=== PATIENT | male | born 1930 | race African-American/Black ===

== ENCOUNTER 2016-03-15 15:08 | Inpatient (IN) | payer OTHER ==
[2016-03-15] MEDS ORDERED: ASPIRIN PO STA (15:13)
[2016-03-15] MEDS ORDERED: ASPIRIN PO ONE (15:13)
[2016-03-15 15:34] LABS: BE -5.3 mmoll (-3.0-3.0); BLOOD TYPE ARTERIAL; DRAW SITE L RADIAL; METHB 0.7 % (0.0-1.5); O2(CT) 14.8 mL/dL (15.0-23.0); PCO2(98.6) 47 mmHg (35-45); PO2(98.6) 108 mmHg (60-100); SAMPLE BLOOD; SAO2 99.1 % (95.0-100.0); THB 10.8 g/dL (11.5-17.4); pH(98.6) 7.27 (7.35-7.45)
[2016-03-15 15:37] LABS: MANUAL DIFF NEEDED? NO
[2016-03-15 15:38] LABS: BASO% 0.3 % (0.0-0.8); EOS# 0.04 X1000 (0.0-0.7); EOS% 0.6 % (0.0-10.0); HEMATOCRIT 37.2 % (42.0-52.0); HEMOGLOBIN 12.3 g/dL (14.0-18.0); IMM GRAN# 0.08 X1000 (0.0-0.04); IMM GRAN% 1.2 % (0.0-0.5); LYMPH# 2.18 X1000 (1.2-3.4); LYMPH% 33.6 % (20.5-51.1); MCH 28.9 PG (27-31); MCHC 33.1 g/dL (33-37); MCV 87.5 FL (81-99); MONO# 0.39 X1000 (0.11-0.59); MPV 11.7 FL (7.4-10.4); NEUT% 58.3 % (42.2-75.2); PLT 162 X1000 (130-400); RBC 4.25 XMIL (4.7-6.1)
[2016-03-15 15:39] LABS: ALLEN TEST YES; MODALITY AMBU BAG
--- NOTE | 2016-03-15 15:39 | PROVIDER DOCUMENTATION ---
HPI-Cardiopulmonary Arrest - General Chief Complaint: Full Arrest Stated Complaint: code Time Seen by Provider: 03/15/16 15:08 Source: EMS Allergies/Adverse Reactions: Allergies Allergy/AdvReac Type Severity Reaction Status Date / Time No Known Allergies Allergy Verified 03/15/16 15:13 Home Medications: Aspirin 325 mg PO 11/01/14 Metoprolol/Hydrochlorothiazide [Lopressor Hct 100-25 Tablet] 11/01/14 Omeprazole [Prilosec] 11/01/14 Terazosin HCl 10 mg PO DAILY 11/01/14 - History of Present Illness-C/P Arrest Initial Comments: Pt is 85 y/o M presents to the ED with post full arrest. EMS states son witnessed arrest and started chest compressions. EMS states son stated Pt has prior stroke. EMS states intubating in route to ED and inserting EJ on L side. 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 Pt went into full arrest again at 1529 and chest compression and epi given. Pt's pulse was found again at 1531 and compressions stopped. Reason for Code Blue?: full arrest Witnessed arrest?: Yes (son) Noted by:: family (son) Bystander CPR?: Yes (son ) CPR initiated before doctor arrival?: Yes Down-time before ACLS?: unknown Initial Findings: unresponsive Treatment initiated prior to doctor arrival?: Initiated intubated, Initiated CPR /thumper, Initiated epinephrine #mg (times 4), Initiated sodium bicarb # amps (1 ) Similar Symptoms Previously?: No Recently seen or treated by another doctor?: No - Pre-hospital Treatment EMS Initial Findings:: unresponsive Pre-hospital Treatment: Initiated intubated, Initiated CPR, Initiated epinephrine, Initiated other (bicarb) Review of Systems - Adult - REVIEW OF SYSTEMS - ADULT Constitutional: denies: chills, fever Eyes: denies: blurred vision, double vision Ears, Nose, Mouth & Throat: denies: ear pain, nose pain, throat pain Cardiovascular: reports: irregular heart rate (tachy). denies: chest pain, heart murmur Respiratory: denies: cough, shortness of breath, wheezing Gastrointestinal: denies: abdominal pain, diarrhea, nausea, vomiting Genitourinary: denies: dysuria, hematuria Musculoskeletal: denies: bone pain, joint pain, neck pain Integumentary: denies: hives, itching Neurological: denies: dizziness/vertigo, headache/migraines Psychiatric: reports: no symptoms reported Endocrine: reports: no symptoms reported Hematologic/Lymphatic: reports: no symptoms reported Allergic/Immunologic: reports: no symptoms reported All Other Systems: Reviewed and Negative Past History - Adult - PAST MEDICAL HISTORY-ADULT Review of Records: reports: Nursing Assessment Review, Medications Reviewed, Social history reviewed & non-contributory. Major Childhood Illnesses: reports: denies history Cardiovascular: reports: HTN, hyperlipidemia, RI Respiratory: reports: denies history Gastrointestinal: reports: GERD Obstetrical/Gynecological: reports: denies history Genitourinary: reports: denies history Musculoskeletal: reports: denies history Neurological: reports: denies history Endocrine/Immune: reports: denies history Other Conditions: reports: denies history - PRIOR SURGERIES/PROCEDURES Surgical/Procedure History: reports: CABG - IMMUNIZATION STATUS Childhood Immunizations: See Nurse Assessment Flu Vaccine: See Nurse Assessment - FAMILY HISTORY Family History: reviewed, not pertinent - SOCIAL HISTORY Smoking: denies Substance Use: denies Living Situation: family Physical Exam-General - PHYSICAL EXAM-ADULT Initial Vital Signs Reviewed: Yes - CONSTITUTIONAL General Appearance: mild distress. negative: appears well (ill in appearance) - EYES Eyes: PERRL/EOMI, pink conjunctivae - HEAD, EARS, NOSE, MOUTH & THROAT HENMT: normocephalic/atraumatic, moist mucous membranes, normal ENT inspection - NECK Neck: non-tender, full range of motion, normal inspection - RESPIRATORY Respiratory: chest non-tender, lungs clear, normal breath sounds (with intubation) - CARDIOVASCULAR Cardiovascular: normal peripheral pulses, no edema, tachycardia - GASTROINTESTINAL (ABDOMEN) Abdominal Exam: normal bowel sounds, non tender, soft, distended, other - LYMPHATIC Lymphatic: no adenopathy - MUSCULOSKELETAL Back Exam: normal inspection, no CVA tenderness, no vertebral tenderness - SKIN Integumentary: normal color, normal turgor, warm/dry, other (stage 4 skin ulcer to R mg) Progress - PLAN OF CARE/RESULTS Progress/Plan/Lab Results: Laboratory Tests 03/15/16 03/15/16 15:07 15:30 WBC 6.48 RBC 4.25 L Hgb 12.3 L Hct 37.2 L MCV 87.5 MCH 28.9 MCHC 33.1 RDW Std Deviation 18.8 H Plt Count 162 MPV 11.7 H Immature Gran % (Auto) 1.2 H Neut % (Auto) 58.3 Lymph % (Auto) 33.6 Dougherty % (Auto) 6.0 Eos % (Auto) 0.6 Baso % (Auto) 0.3 Immature Gran # (Auto) 0.08 H Neut # (Auto) 3.77 Lymph # (Auto) 2.18 Dougherty # (Auto) 0.39 Eos # (Auto) 0.04 Baso # (Auto) 0.02 Specimen Type ARTERIAL Sample Site L RADIAL pH 7.27 L pCO2 47 H pO2 108 H HCO3 20.8 Base Excess -5.3 L Oxyhemoglobin 96.0 ABG O2 Sat (Calculated) 14.8 L ABG O2 Saturation 99.1 ABG Carboxyhemoglobin 2.40 ABG Methemoglobin 0.7 Daniel Test YES A-a O2 Difference 546.0 Total Hemoglobin 10.8 L Lactate 6.30 H* Liter Flow 15.0 Blood Gas Modality AMBU BAG FiO2 % 100.0 Orders Category Date Time Status Cardiac Monitoring DIRECTED Care 03/15/16 15:13 Active Oxygen Therapy- ED Nursing DIRECTED Care 03/15/16 15:13 Active Saline Loc NOW Care 03/15/16 15:13 Active CHEST-PORTABLE [RAD] Stat Exams 03/15/16 15:14 Taken ABG [RESP] Routine Lab 03/15/16 15:07 Completed CBC WITH ELECTRONIC DIFF [HEME] Stat Lab 03/15/16 15:30 Completed CK PROFILE [SP CHEM] Stat Lab 03/15/16 15:30 Received COMPREHENSIVE METABOLIC PANEL [CHEM] Stat Lab 03/15/16 15:30 Received D-D[address]ER [address] [COAG] Stat Lab 03/15/16 15:30 Received MAGNESIUM [CHEM] Stat Lab 03/15/16 15:30 Received PRO B-NATRIURETIC PEPTIDE Stat Lab 03/15/16 15:30 Received [address]IME WITH INR PL [COAG] Stat Lab 03/15/16 15:[address] [COAG] Stat Lab 03/15/16 15:30 Received TROPONIN T Stat Lab 03/15/16 15:30 Received Aspirin Med 03/15/16 15:13 Discontinued 325 mg PO STAT STA Aspirin Med 03/15/16 15:13 Discontinued 81 mg PO NOW ONE EKG [EKG] Stat Ther 03/15/16 15:13 Ordered Vital Signs - 24 hr 03/15/16 03/15/16 03/15/16 15:08 15:22 15:32 Pulse Rate 121 H 92 H 144 H Respiratory 15 15 Rate Blood Pressure 122/084 104/067 173/115 O2 Sat by Pulse 63 L Oximetry Laboratory Tests 03/15/16 03/15/16 03/15/16 15:07 15:30 15:30 WBC RBC Hgb Hct MCV MCH MCHC RDW Std Deviation Plt Count MPV Immature Gran % (Auto) Neut % (Auto) Lymph % (Auto) Dougherty % (Auto) Eos % (Auto) Baso % (Auto) Immature Gran # (Auto) Neut # (Auto) Lymph # (Auto) Dougherty # (Auto) Eos # (Auto) Baso # (Auto) PT INR APTT (Factor Assay) Specimen Type ARTERIAL Sample Site L RADIAL pH 7.27 L pCO2 47 H pO2 108 H HCO3 20.8 Base Excess -5.3 L Oxyhemoglobin 96.0 ABG O2 Sat (Calculated) 14.8 L ABG O2 Saturation 99.1 ABG Carboxyhemoglobin 2.40 ABG Methemoglobin 0.7 Daniel Test YES A-a O2 Difference 546.0 Total Hemoglobin 10.8 L Lactate 6.30 H* Liter Flow 15.0 Blood Gas Modality AMBU BAG FiO2 % 100.0 Sodium 137 Potassium 4.1 Chloride 98 Carbon Dioxide 26 Anion Gap 13 BUN 23 H Creatinine 1.2 Estimated GFR/1.73 m2 58 BUN/Creatinine Ratio 19 Glucose 119 H Calculated Osmolality 279 Calcium 8.4 L Magnesium 2.1 Total Bilirubin 1.90 H AST 26 ALT 18 Alkaline Phosphatase 146 H Creatine Kinase 130 Troponin T 0.022 Total Protein 6.3 Albumin 3.1 L Globulin 3.0 Albumin/Globulin Ratio 1.0 03/15/16 03/15/16 15:30 15:30 WBC 6.48 RBC 4.25 L Hgb 12.3 L Hct 37.2 L MCV 87.5 MCH 28.9 MCHC 33.1 RDW Std Deviation 18.8 H Plt Count 162 MPV 11.7 H Immature Gran % (Auto) 1.2 H Neut % (Auto) 58.3 Lymph % (Auto) 33.6 Dougherty % (Auto) 6.0 Eos % (Auto) 0.6 Baso % (Auto) 0.3 Immature Gran # (Auto) 0.08 H Neut # (Auto) 3.77 Lymph # (Auto) 2.18 Dougherty # (Auto) 0.39 Eos # (Auto) 0.04 Baso # (Auto) 0.02 PT 20.9 H INR 1.78 H APTT (Factor Assay) 41.2 Specimen Type Sample Site pH pCO2 pO2 HCO3 Base Excess Oxyhemoglobin ABG O2 Sat (Calculated) ABG O2 Saturation ABG Carboxyhemoglobin ABG Methemoglobin Daniel Test A-a O2 Difference Total Hemoglobin Lactate Liter Flow Blood Gas Modality FiO2 % Sodium Potassium Chloride Carbon Dioxide Anion Gap BUN Creatinine Estimated GFR/1.73 m2 BUN/Creatinine Ratio Glucose Calculated Osmolality Calcium Magnesium Total Bilirubin AST ALT Alkaline Phosphatase Creatine Kinase Troponin T Total Protein Albumin Globulin Albumin/Globulin Ratio - EKG 1 Time of EKG reading by physician:: 15:12 EKG Read and Signed by:: Emmanuel Sutton EKG Interpretation (*Must complete 3 of following elements*): Abnormal (rhythm - aberrantly conducted complexes; ST and T wave abnormality, consider anterolateral ischemia; prolonged QT) Rate: 114 Rhythm: atrial fibrillation w rapid ventricular response w premature ventricular or Comments: L axis deviation; low voltage QRS; inferior infarct, age undetermined 2 Time of EKG reading by physician:: 15:13 EKG Read and Signed by:: Emmanuel Sutton EKG Interpretation (*Must complete 3 of following elements*): Abnormal (ST and T wave abnormality, consider anterolateral ischemia) Rate: 108 Rhythm: undetermined rhythm Comments: L axis deviation; low voltage QRS; inferior infarct, age undetermined - XRAY 1 XRAY: Bilateral XRAY Study: Chest Impression: Abnormal (endotracheal tube approaching the dave. this should be withdrawn 1 to 2 cm. layering R pleural effusion. bilateral upper lobe infiltrates. suspect skin fold producing a linear lucency L upper lung zone, less likely L pneumothorax. followup recommended.) - CONSULTS/PCP/HOSPITALIST Notification #1 *Consult/PCP/Hospitalist*: Dr. Crouch Time Discussed: 15:40 ( accepted admit ) Reason/Comments: Dr. Sutton consulted with Dr. Crouch about admit of PT Consult Disposition: Admit Departure - Departure Time of Disposition Order: 16:26 DIAGNOSIS: Cardiac arrest Disposition: ADMITTED INPATIENT 09 Certified Medical Emergency: Emergent Condition: Stable Attestation - Scribe Verification/Attestation Scribe:: Sharmaine Duran Acting as Scribe for:: Emmanuel Sutton Scribe documention review:: This chart was documented by a scribe and accurately reflects the service the provider performed and the decisions made by the provider.
[2016-03-15 15:57] LABS: INR 1.78 (0.86-1.15); PROTIME 20.9 Seconds (12.1-15.5)
[2016-03-15 15:58] LABS: PTT PL 41.2 Seconds (22.6-43.9)
[2016-03-15 15:59] LABS: ALBUMIN 3.1 g/dL (3.5-5.0); CALCIUM 8.4 mg/dL (8.8-10.2); MAGNESIUM 2.1 mg/dL (1.5-2.7); POTASSIUM 4.1 mmol/L (3.5-5.1); TOTAL BILIRUBIN 1.9 mg/dL (0.20-1.00); TOTAL PROTEIN 6.3 g/dL (6.3-8.3)
--- NOTE | 2016-03-15 16:49 | Diag Imaging Result Document ---
PROCEDURE NAME: CHEST-PORTABLE - 03/15/2016 CHEST, SINGLE VIEW: INDICATION: Post arrest. FINDINGS: There is an endotracheal tube in position. This is encroaching upon the dave and probably should be withdrawn 1 to 2 cm. There is cardiomegaly. There is a right pleural effusion. There are bilateral upper lobe infiltrates. Lucency left upper lung zone is thought to represent a skin fold as opposed to a small pneumothorax. Followup is recommended. There is a catheter within the left neck. IMPRESSION: 1. Endotracheal tube approaching the dave. This should be withdrawn 1 to 2 cm. 2. Layering right pleural effusion. 3. Bilateral upper lobe infiltrates. 4. Suspect skin fold producing a linear lucency left upper lung zone, less likely left pneumothorax. Followup recommended.
[2016-03-15] MEDS ORDERED: EPINEPHRINE SYRINGE ONE (17:45)
[2016-03-15] MEDS ORDERED: CALCIUM CHLORIDE ONE (17:45)
[2016-03-15] MEDS ORDERED: VERSED 100 MG in NS 80 ML IV PRN (18:45)
--- NOTE | 2016-03-15 19:30 | EKG Report ---
Test Performed on : 03/15/2016 3:12:30 PM Test Reason : CHEST PAIN Blood Pressure : / mmHG Vent. Rate : 114 BPM Atrial Rate : 075 BPM P-R Int : 000 ms QRS Dur : 094 ms QT Int : 406 ms P-R-T Axes : 000 -64 107 degrees QTc Int : 559 ms Atrial fibrillation. with rapid ventricular response. with premature ventricular or aberrantly conduc marvin complexes. Left axis deviation Low voltage QRS Inferior infarct , age undetermined ST & T wave abnormality, consider anterolateral ischemia Prolonged QT Abnormal ECG No previous ECGs available Unconfirmed Result
[2016-03-15] MEDS: NS 1,000 ML IV SCH (19:59)
[2016-03-16] MEDS: NEO-SYNEPHRINE 50 MG in NS 250 ML IV PRN ×2 (02:00→12:15)
[2016-03-16] MEDS: NS 1,000 ML IV SCH ×3 (05:43→23:00)
[2016-03-16] MEDS ORDERED: ZITHROMAX 500 MG/NS 250 ML IV SCH (06:30)
[2016-03-16] MEDS ORDERED: ROCEPHIN 1 GM/NS 50 ML IV SCH (06:30)
[2016-03-16] MEDS: DUONEB (A & A) INH SCH ×3 (08:14→21:00)
[2016-03-16 08:33] LABS: ALBUMIN 2.6 g/dL (3.5-5.0); CALCIUM 8.7 mg/dL (8.8-10.2); MAGNESIUM 1.9 mg/dL (1.5-2.7); POTASSIUM 4.1 mmol/L (3.5-5.1); TOTAL BILIRUBIN 2.3 mg/dL (0.20-1.00); TOTAL PROTEIN 5.7 g/dL (6.3-8.3)
[2016-03-16 08:45] LABS: BASO% 0.1 % (0.0-0.8); HEMATOCRIT 32.7 % (42.0-52.0); HEMOGLOBIN 10.8 g/dL (14.0-18.0); IMM GRAN# 0.02 X1000 (0.0-0.04); IMM GRAN% 0.2 % (0.0-0.5); LYMPH# 0.67 X1000 (1.2-3.4); LYMPH% 6.2 % (20.5-51.1); MANUAL DIFF NEEDED? YES; MCH 28.3 PG (27-31); MCV 85.8 FL (81-99); MONO# 0.72 X1000 (0.11-0.59); MONO% 6.7 % (1.7-9.3); MPV 11.9 FL (7.4-10.4); NEUT% 86.8 % (42.2-75.2); PLT 190 X1000 (130-400); RBC 3.81 XMIL (4.7-6.1)
--- NOTE | 2016-03-16 09:20 | Diag Imaging Result Document ---
PROCEDURE NAME: CHEST-PORTABLE - 03/16/2016 SINGLE FRONTAL RADIOGRAPH OF THE CHEST: COMPARISON: 03/15/2016. FINDINGS: ET tube is approximately stable or, perhaps, it has been withdrawn slightly. It projects a couple centimeters above the dave. Infiltrate on the left appears to have improved somewhat. The right infiltrate is approximately stable. The pleural effusion on the right appears smaller. No new consolidations are identified. Cardiac silhouette is stable. IMPRESSION: Improved infiltrate on the left and decrease in prominence of the right pleural effusion.
[2016-03-16 09:34] LABS: LYMPHS 6 % (21-51); MONO 3 % (1-9); NRBC 1 % (0-0)
[2016-03-16 09:35] LABS: HYPOCHROM OCCASIONAL
[2016-03-16 10:41] LABS: BLOOD TYPE ARTERIAL; DRAW SITE L BRACHIAL; METHB 0.9 % (0.0-1.5); O2(CT) 16.4 mL/dL (15.0-23.0); PCO2(98.6) 35 mmHg (35-45); PO2(98.6) 234 mmHg (60-100); SAMPLE BLOOD; SAO2 100.3 % (95.0-100.0); SRATE 14 BPM; THB 11.6 g/dL (11.5-17.4); TVOL 500 mL; pH(98.6) 7.47 (7.35-7.45)
[2016-03-16 10:45] LABS: ALLEN TEST YES; MODALITY VENTILATOR
--- NOTE | 2016-03-16 11:15 | CONSULTATION ---
DATE OF CONSULTATION: 03/15/2016 ATTENDING PHYSICIAN: Dr. Crouch. REASON FOR CONSULTATION: Unresponsiveness. Status post cardiac arrest. Please note that most of the history is obtained from the nurses, as well as the ER notes. HISTORY OF PRESENT ILLNESS: Mr. Montes De Oca is an 85-year-old male, who was brought in by the EMS to the hospital with cardiac arrest. He was intubated and was initiated CPR, as well as epinephrine by the EMS at his house. Patient has history of coronary artery disease and stroke. The rest of the history is unavailable. He was admitted to the ICU for ventilator and critical care management. PAST MEDICAL HISTORY: Per records. History of coronary artery disease status post CABG, hypertension, hyperlipidemia, CVA and GERD. PAST SURGICAL HISTORY: Unknown. SOCIAL HISTORY: Unknown. FAMILY HISTORY: Unknown. REVIEW OF SYSTEMS: No fevers, patient unresponsive. PHYSICAL EXAMINATION: Vitals: Blood pressure was 124/68, respiratory rate 20, pulse 75, temperature 97.0 degrees, oxygen saturation is 100% on 100% FiO2 on the vent with a tidal volume of 500, respiratory rate of 15 and PEEP of 5. General: On physical exam, patient is unresponsive, even for painful stimulus. Head and Neck: Normocephalic and atraumatic. Heart: S1, S2 heard. Lungs: Crackles noted bilaterally. No wheezing or rhonchi. Abdomen: Soft. Extremities: No edema. 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 Patient is unresponsive for painful stimulus without any sedation. LABS: White count 6.4, hemoglobin 12.3, hematocrit 37. Blood gases: The pH 7.27, pCO2 77, PO2 108, bicarbonate is 20. Chemistry: Sodium 137, potassium 4.1, chloride 98, CO2 26, BUN 23, creatinine 1.2. ProBNP more than 35,000. Troponin was 0.022. X-RAYS: Chest x-ray showed right-sided pleural effusion, bilateral upper lobe infiltrates, endotracheal tube approaching dave (recommended retracting 1 to 2 cm). ASSESSMENT: 1. Status post cardiac arrest. 2. Acute hypoxic and hypercapnic respiratory failure s/p Intubation 3. Possible aspiration pneumonia. Plan: Monitor hemodyanamics closely, Using pressors if MAP <65. He was on phenylephrine which has been weaned off. Repeat serial tropnins. Echo to assess cardiac function. B-blockers, asa, and statins. and lasix prn for possible fluid overload. Acute hypoxic hypercapnic respiratory failure secondary to cardiac arrest, He was intubated for respiratory failure secondary to cardiac arrest. Continue ventilatory support due to severe hypoxia and poor mental status. I will change ventilatory settings to tidal volume of 500, respiratory rate of 16, and decrease FiO2 to 90% and PEEP of 8. We will repeat ABG in the morning. Recommend bronchodilators, as well as antibiotics until further data and labs are available. Aspiration pneumonia, chest x-ray reveals bilateral effusions. We will cover him empirically with antibiotics, Rocephin and Zithromax. Prognosis appears to be poor. Condition is critical. Continue management in ICU while patient is intubated. [facility]
[2016-03-16] MEDS ORDERED: VANCOMYCIN IV PER PHARMACY MISC SCH (13:30)
[2016-03-16] MEDS: ZOSYN 3.375 GM/NS 50 ML IV SCH ×2 (14:00→20:08)
--- NOTE | 2016-03-16 14:17 | PROGRESS NOTE ---
DATE: 03/16/2016 ADVANCE CARE PLANNING: Discussed with son who currently lives with. Patient did admit to not wanting long-term life support. He has no Living Will. No power of regulatory attorney at this point. He does have a and older son and they are discussing about DO NOT RESUSCITATE status and other terms once patient is stabilized. -5
--- NOTE | 2016-03-16 14:17 | PROGRESS NOTE ---
DATE: 03/16/2016 SUBJECTIVE: Patient does respond to noxious stimuli off sedation but that is about it. OBJECTIVE: Vital signs: Blood pressure 90/58, heart rate 76, respiratory of 14, temperature 97 degrees, 100% on 40%. Cardiovascular: Regular rate and rhythm. Pulmonary: Bilateral breath sounds. Clear to auscultation. GI: Soft, nontender, nondistended. Bowel sounds are positive. LABORATORY DATA: White count normal, hemoglobin and hematocrit 10 and 32, platelets of 190,000. Blood gas, pH 7.47, pCO2 35, PaO2 234. Initial lactate 6.3, now 1.9, BUN and creatinine 29 and 1.3, total bilirubin 2.3, albumin 2.6. Plasma lactate 2.6. PROBLEM LIST: 1. Cardiac arrest unclear etiology. Based on discussion with family he may have had an aspiration event. He does have some I feel right upper lobe airspace disease. He does have a pleural effusion on the right and a left infiltrate but may have been primary cardiac such as myocardial infarction. I am going to repeat his cardiac enzymes although probably will be limited utility in the setting of 2 episodes of CPR, repeat his EKG, get an echocardiogram and follow. I think we need to get a head CT to evaluate for CVA. 2. Severe peripheral vascular disease. He has got an open wound on his right leg, possible source of sepsis. He is on vasopressors. We will expand antibiotic coverage to vancomycin and Zosyn and follow. Continue wound care when available. 3. Disposition. Discussed the case with the family. We are continuing supportive care pending his neurological recovery and what we find out on his other sources of etiology.
[2016-03-16 14:28] LABS: CK INDEX 2.1 (0.0-2.5); CK-MB 5.79 ng/mL (0.0-5.0)
[2016-03-16] MEDS: LOVENOX SUBQ SCH (14:30)
[2016-03-16] MEDS: PROTONIX IV SCH (15:00)
[2016-03-16] MEDS ORDERED: VANCOMYCIN 1,500 MG in NS 250 ML IV ONE (15:30)
--- NOTE | 2016-03-16 17:25 | EKG Report ---
Test Performed on : 03/16/2016 4:01:14 PM Test Reason : cardiac arrest Blood Pressure : / mmHG Vent. Rate : 077 BPM Atrial Rate : 077 BPM P-R Int : 132 ms QRS Dur : 090 ms QT Int : 430 ms P-R-T Axes : 081 -63 105 degrees QTc Int : 486 ms Sinus rhythm. with occasional premature ventricular complexes. Left axis deviation Inferior infarct (cited on or before 15-MAR-2016) Abnormal ECG When compared with ECG of 15-MAR-2016 15:12, (Unconfirmed) Sinus rhythm. has replaced Atrial fibrillation. T wave inversion no longer evident in Anterior leads Confirmed by Emmanuel Sutton MD ([id number]) on 03/28/2016 11:39:35 AM
--- NOTE | 2016-03-16 22:15 | Diag Imaging Result Document ---
PROCEDURE NAME: HEAD W/O CONTRAST - 03/16/2016 CT HEAD WITHOUT CONTRAST: COMPARISON: None available. FINDINGS: There is diffuse brain atrophy and there is patchy low attenuation in the periventricular and subcortical white matter suggesting microangiopathy. There appear to be chronic lacunar infarcts involving both basal ganglia. There is no definite acute infarct given the limited sensitivity of CT versus MRI. There are couple tiny calcified foci at the inner table of the skull overlying the right cerebral convexity and one on the left. They are also a cm in size with the largest measuring up to 7.5 cm in the greatest axial. These may represent tiny calcified meningiomas. Otherwise, there is no evidence of mass, mass effect, or intracranial hemorrhage. There are small air-fluid levels in the sphenoid sinuses and right ethmoid air cells that is likely related to intubation. Surrounding soft tissues and bony structures are essentially unremarkable, otherwise. IMPRESSION: Chronic-appearing intracranial changes as described but no evidence of acute intracranial pathology. [facility]
--- NOTE | 2016-03-17 05:34 | PROGRESS NOTE ---
DATE: 03/16/2016 SUBJECTIVE: Patient seen and examined on the morning of 03/16/2016. No acute events overnight. Currently on ventilator with low-dose phenylephrine for hypotension And Versed and morphine as needed. ROS- No fevers Rest of ros unable perform since he iis intubated. OBJECTIVE: Vital Signs: Blood pressure 90/58, heart rate 76, respiratory rate is 14, temperature 97 degrees, oxygen saturation 100% on 40%. Heart: S1 and S2 heard. Lungs: Bilateral breath sounds clear. Abdomen: Soft. Extremities: No edema. 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 Labs: White count is 10. White count is normal. Hemoglobin is 10, hematocrit 32, platelets 120,000. PH was 7.47, pCO2 35, PO2 234. BUN is 29, creatinine 1.3. ASSESSMENT AND PLAN: 1. Cardiac arrest. 2. Ventilator dependent respiratory failure. 3. Hypoxia. PLAN: 1. For cardiac arrest, patient is currently not breathing over the ventilator. I discontinued the sedation to assess the neurological status. There is a possibility that patient is anoxic. Maintain MAP over 65. 2. Ventilator dependent respiratory failure. Continue ventilatory support. Empiric antibiotics along with nebulization treatments. I ordered and reviewed ABG results. We will decrease the PEEP and FiO2 to 30%. 3. Long-term prognosis is poor. We will consider ordering EEG if the patient does not respond neurologically to assess anoxic brain damage. JT
[2016-03-17 05:39] LABS: BE 1.8 mmoll (-3.0-3.0); BLOOD TYPE ARTERIAL; DRAW SITE R RADIAL; METHB 1.4 % (0.0-1.5); O2(CT) 16.1 mL/dL (15.0-23.0); PCO2(98.6) 37 mmHg (35-45); PO2(98.6) 84 mmHg (60-100); SAMPLE BLOOD; SAO2 97.3 % (95.0-100.0); SRATE 12 BPM; THB 12.2 g/dL (11.5-17.4); TVOL 500 mL; pH(98.6) 7.45 (7.35-7.45)
[2016-03-17] MEDS: ZOSYN 3.375 GM/NS 50 ML IV SCH ×4 (05:39→23:40)
[2016-03-17 05:47] LABS: ALLEN TEST YES; MODALITY VENTILATOR
[2016-03-17 06:39] LABS: EOS# 0.02 X1000 (0.0-0.7); EOS% 0.3 % (0.0-10.0); HEMATOCRIT 35.7 % (42.0-52.0); HEMOGLOBIN 11.9 g/dL (14.0-18.0); IMM GRAN# 0.01 X1000 (0.0-0.04); IMM GRAN% 0.1 % (0.0-0.5); LYMPH# 0.33 X1000 (1.2-3.4); LYMPH% 4.6 % (20.5-51.1); MANUAL DIFF NEEDED? YES; MCH 28.3 PG (27-31); MCHC 33.3 g/dL (33-37); MCV 84.8 FL (81-99); MONO# 0.13 X1000 (0.11-0.59); MONO% 1.8 % (1.7-9.3); MPV 11.9 FL (7.4-10.4); NEUT% 93.2 % (42.2-75.2); PLT 197 X1000 (130-400); RBC 4.21 XMIL (4.7-6.1)
[2016-03-17 06:43] LABS: AGAP 11; ALBUMIN 2.7 g/dL (3.5-5.0); ALKALINE PHOSPHATASE 126 U/L (32-122); BUN 30 mg/dL (8-22); CALCIUM 8.5 mg/dL (8.8-10.2); CHLORIDE 105 mmol/L (98-107); COSMO 287; GOT 25 U/L (10-34); GPT 17 U/L (10-44); POTASSIUM 3.6 mmol/L (3.5-5.1); SODIUM 141 mmol/L (136-145); TCO2 25 mmol/L (25-35); TOTAL PROTEIN 5.8 g/dL (6.3-8.3)
[2016-03-17 06:47] LABS: MAGNESIUM 1.9 mg/dL (1.5-2.7)
[2016-03-17 06:56] LABS: HYPOCHROM OCCASIONAL; LYMPHS 8 % (21-51)
[2016-03-17] MEDS: DUONEB (A & A) INH SCH ×3 (09:55→20:02)
--- NOTE | 2016-03-17 09:56 | Diag Imaging Result Document ---
PROCEDURE NAME: CHEST-PORTABLE - 03/17/2016 SINGLE FRONTAL RADIOGRAPH OF THE CHEST: COMPARISON: 03/16/2016. FINDINGS: Inspiration is suboptimal. There is increasing opacity at the right lung base suggesting worsening atelectasis and/or infiltrate. The small right effusion is also probably larger. The left lung is stable. Cardiac silhouette is stable. ET tube is in stable position. An NG tube projects below the diaphragm and out of the field of view. IMPRESSION: Slight increased opacity at the right lung base as described above.
--- NOTE | 2016-03-17 12:52 | Diag Imaging Result Document ---
PROCEDURE NAME: CHEST-PORTABLE - 03/16/2016 SINGLE FRONTAL RADIOGRAPH OF THE CHEST: COMPARISON: 03/16/2016. FINDINGS: The newly placed NG tube is identified. It projects below the diaphragm and is assumed to be coiled in the stomach in the expected position. Otherwise, the chest appears to be essentially stable as compared to the recent previous study. IMPRESSION: Interval placement of NG tube in the expected position as described.
[2016-03-17] MEDS: LOVENOX SUBQ SCH (14:05)
[2016-03-17] MEDS: NS 1,000 ML IV SCH ×2 (14:20→19:23)
[2016-03-17] MEDS: PROTONIX IV SCH (14:25)
--- NOTE | 2016-03-17 15:01 | PROGRESS NOTE ---
DATE: 03/17/2016 SUBJECTIVE: The patient is still not very awake. He is off his Versed drip. Still on a little bit of Venancio-Synephrine. OBJECTIVE: Vital signs: Blood pressure 103/63, heart rate 106, respiratory rate 12, temperature 98.8 degrees, 100% on 50%. Cardiovascular: Regular rate and rhythm. Pulmonary: Bilateral breath sounds. Clear to auscultation. GI: Soft, nontender, nondistended. Bowel sounds are positive. Extremities: No clubbing or cyanosis. Lymphatics: No peripheral edema. Neurological: Nonfocal. LABORATORY DATA: White count 7. Chemistries look okay. Total bilirubin is 2.2, direct bilirubin 1.4, albumin 2.6. PROBLEM LIST: 1. Cardiac arrest really unknown etiology at this time. Awaiting echocardiogram report. Repeat cardiac enzymes were negative. 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 We will continue to follow. Regardless he has had a neurological event although his head CT shows no stroke, no hemorrhage or no cerebral edema at this point. We will continue supportive care and follow. 2. Encephalopathy. Unclear if this is anoxic, ischemic or cerebrovascular accident related. Will pursue EEG and neurology evaluation tomorrow, hopefully we can get that situated. 3. Early pneumonia. We will continue empiric antibiotics and follow. He also has a large wound on his right leg. We will continue to follow. He has been followed by Dr. Arana for that so we will continue to manage that. At this point obviously he is not in any shape or form ready for any surgical intervention. We will get wound care to evaluate and I will touch base with Dr. Arana as needed this if the patient were to stabilize.
--- NOTE | 2016-03-17 17:11 | ECHO REPORT ---
ORDER DATE: 03/16/2016 INDICATION: Cardiac arrest. FINDINGS: 1. Right atrium is mildly enlarged at 4.3 cm. 2. There is moderate tricuspid regurgitation. RV systolic pressure of 58 suggesting pulmonary hypertension. 3. There is mild to moderate reduction in RV systolic function with mild dilatation of the right ventricle. 4. Mild pulmonic insufficiency. 5. Moderate left atrial enlargement at 5.1 cm. 6. There is mild mitral regurgitation. No evidence of mitral valve prolapse. Heavy mitral annular calcification is noted. 7. Normal LV size, end-diastolic dimension of 4.9. No evidence of left ventricular hypertrophy with a posterior and interventricular septal thickness of 1.1 cm each. There is severe reduction in LV systolic function with an estimated EF of 15%. Global hypokinesis is noted. 8. The aortic valve is heavily calcified with restriction in motion, consistent with severe aortic stenosis. The valve is trileaflet. The peak gradient is 35, with a mean of 20. The valve area by continuity equation as well as planimetry is 0.6-0.7 cm2. The dimensionless index across the valve is 0.20. This is likely a case of low output severe aortic stenosis. Mild aortic insufficiency. 9. The aorta appears normal in visualized segments. 10. No pericardial effusion identified.
--- NOTE | 2016-03-17 17:31 | CONSULTATION ---
DATE OF CONSULTATION: 03/17/2016 INDICATIONS: Cardiac arrest. HISTORY OF PRESENT ILLNESS: Mr. Montes De Oca is an 85-year-old, black male who was brought in by EMS on the . Apparently the patient suffered a cardiac arrest at home. No family is present. Patient is unresponsive on the ventilator. All history is obtained via chart review. There is no mention of any significant chest pain or shortness of breath. I have no history of the specific events other than that the patient was brought into the ER and intubated. Since that time, he has remained on the ventilator. PAST MEDICAL HISTORY: 1. Per review, there is no history of coronary disease in the chart. He had does not have a history of bypass. 2. Hypertension. 3. Hyperlipidemia. 4. Possible stroke. 5. Peripheral arterial disease. SOCIAL HISTORY, FAMILY HISTORY, REVIEW OF SYSTEMS: Unable to be obtained secondary to the patient's current intubated and sedated status. PHYSICAL EXAMINATION: Vital Signs: The patient is currently on a small amount of Venancio-Synephrine. He has been afebrile. His heart rates are in the low 100s. His blood pressure is 103/63 most recently. General: He is in no acute distress. HEENT: Oropharynx is moist. He has poor dentition. His eye examination shows pink conjunctivae. White sclerae. Neck: Examination shows no obvious thyromegaly or thyroid tenderness. Cardiovascular: He sounds to be in a regular rate and rhythm. Telemetry currently shows sinus rhythm. He has a 1+ bilateral lower extremity edema and warm and well perfused lower extremities. Chest: Exam seems clear but he has difficult to hear breath sounds. Mechanical breath sounds are heard throughout. He is currently on the ventilator. Abdomen: Soft, nontender. Bowel sounds are present. Skin: Notable for multiple abrasions to the anterior shins bilaterally. These are in various stages of healing. Neurologic/Psychiatric: Examinations are unable to be performed secondary to current sedated status. The patient does open his eyes slightly to sternal rub but does not localize to the examiner or follow commands. Musculoskeletal: Normal symmetric muscle tone. No long bone tenderness to palpation. PERTINENT DATA: White count 7.1, hematocrit 35.7, platelet count 197,000. His current ABG shows a pH of 7.45, pCO2 is 37 times, PO2 is 84. Yesterday they were 35 and 234 respectively. His AA gradient today is 511. Yesterday it was 293. His sodium is 141, potassium 3.6 , BUN is 30, creatinine is 1.1. His T bilirubin is 2.2. His cardiac enzymes are negative. He had a proBNP on presentation of greater than 35,000. His EKG on presentation has an undetermined atrial rhythm. There is a relatively narrow complex QRS. Occasional what appears like PVCs during the study. Rate was 114 beats per minute. Possible atrial fibrillation on that study. A second EKG on the at 1601 hours shows PVCs, sinus rhythm present. No signs of acute ischemic changes. There are what appears to be inferior Q-waves present. He had a chest x-ray on the demonstrating an ET tube, possible right pleural effusion and bilateral upper lobe infiltrates. ASSESSMENT: 1. Cardiac arrest of undetermined initial cardiac rhythm. I do not have any ambulance reports present detail what his initial rhythm was on presentation.. 2. Respiratory failure. 3. Possible aspiration event. PLAN: Echo was reviewed. He appears to have severe low output aortic stenosis with a severely reduced ejection fraction. Certainly his event could have been a cardiac arrhythmia secondary to his low EF as well as severe aortic stenosis. If the patient recovers and has a suitable with activity status then he may benefit from evaluation to eventually intervene on the aortic valve. Presently, I would offer supportive care. We will follow his oxygenation. If it significantly worsens then he may benefit from diuresis. [facility]
[2016-03-17] MEDS ORDERED: VERSED ONE ×2 (20:00→20:09)
[2016-03-17] MEDS ORDERED: NS 50 ML ONE (20:10)
[2016-03-17] MEDS: VERSED IV SCH (20:28)
[2016-03-17] MEDS: NS IV SCH (20:28)
--- NOTE | 2016-03-17 20:49 | PROGRESS NOTE ---
DATE: 03/17/2016 SUBJECTIVE: Patient seen and examined in the morning of 03/17/2016. No acute events overnight. Continues to be intubated and sedated. Minimal response while off of sedation to painful stimulus. REVIEW OF SYSTEMS: Negative for any fevers, agitation. Rest of the review of systems unavailable since patient is intubated and is lightly sedated. OBJECTIVE: Vital signs: Blood pressure 103/63, heart rate 106, respiratory rate is 12 to 14, temperature 98 degrees, oxygen saturation is 97% on 50% FiO2. Cardiac: Regular rate and rhythm. Lungs: Clear breath sounds bilaterally. GI: Soft, bowel sounds present. Extremities: No edema. LABORATORY: White count is 7000. CMP within BMP within normal limits. ASSESSMENT AND PLAN: 1. Cardiac arrest. 2. Respiratory failure secondary to cardiac arrest. On ventilator. 3. Aspiration pneumonia. PLAN: 1. Cardiac arrest. Patient's hemodynamics have been stable. Follow echocardiogram results, further management as per cardiology. We will continue to follow patient for neurological damage from cardiac arrest. Recommend electroencephalogram if patient does not improve neurologically in 1-2 days. 2. Ventilatory dysfunction. Continue current vent settings. Patient is currently on 50% FiO2 with assist control mode, tidal volume of 500 and respiratory rate of 12 with PEEP of 5. Continue current ventilator settings. Use nebulizations as needed. 3. Continue to monitor cxr, antibiotics if pt is noted to leukocytosis and fever. JT
[2016-03-18] MEDS ORDERED: VANCOMYCIN 1,300 MG in NS 250 ML IV SCH (03:00)
[2016-03-18] MEDS: NS 1,000 ML IV SCH (04:50)
[2016-03-18 05:11] LABS: BE 1.6 mmoll (-3.0-3.0); BLOOD TYPE ARTERIAL; DRAW SITE R RADIAL; METHB 1.1 % (0.0-1.5); PCO2(98.6) 38 mmHg (35-45); PO2(98.6) 136 mmHg (60-100); SAMPLE BLOOD; SAO2 100.1 % (95.0-100.0); SRATE 12 BPM; THB 10.9 g/dL (11.5-17.4); TVOL 500 mL; pH(98.6) 7.44 (7.35-7.45)
[2016-03-18 05:14] LABS: ALLEN TEST YES; MODALITY VENTILATOR
[2016-03-18] MEDS: ZOSYN 3.375 GM/NS 50 ML IV SCH ×3 (05:55→21:11)
[2016-03-18 07:07] LABS: EOS# 0.01 X1000 (0.0-0.7); EOS% 0.2 % (0.0-10.0); HEMATOCRIT 33.7 % (42.0-52.0); HEMOGLOBIN 10.7 g/dL (14.0-18.0); IMM GRAN# 0.01 X1000 (0.0-0.04); IMM GRAN% 0.2 % (0.0-0.5); LYMPH# 0.43 X1000 (1.2-3.4); LYMPH% 8.9 % (20.5-51.1); MANUAL DIFF NEEDED? YES; MCH 27.4 PG (27-31); MCHC 31.8 g/dL (33-37); MCV 86.4 FL (81-99); MONO# 0.09 X1000 (0.11-0.59); MONO% 1.9 % (1.7-9.3); MPV 12.1 FL (7.4-10.4); NEUT% 88.8 % (42.2-75.2); PLT 136 X1000 (130-400)
[2016-03-18 07:17] LABS: AGAP 10; BUN 29 mg/dL (8-22); CALCIUM 8.1 mg/dL (8.8-10.2); CHLORIDE 107 mmol/L (98-107); COSMO 290; POTASSIUM 3.2 mmol/L (3.5-5.1); SODIUM 143 mmol/L (136-145); TCO2 26 mmol/L (25-35)
[2016-03-18 07:36] LABS: LYMPHS 6 % (21-51)
[2016-03-18] MEDS: DUONEB (A & A) INH SCH ×3 (07:45→21:43)
[2016-03-18 07:51] LABS: ALBUMIN 2.3 g/dL (3.5-5.0); DIRECT BILIRUBIN 1.2 mg/dL (0.00-0.20); TOTAL BILIRUBIN 2.1 mg/dL (0.20-1.00); TOTAL PROTEIN 5.3 g/dL (6.3-8.3)
--- NOTE | 2016-03-18 09:11 | Diag Imaging Result Document ---
PROCEDURE NAME: CHEST-PORTABLE - 03/18/2016 PORTABLE CHEST: Compared to 03/17/2016. FINDINGS: Endotracheal tube and nasogastric tube remain in place. There has been mild decrease in infiltrate and/or atelectasis on the right. There are no other interval changes identified. There is no pneumothorax seen. IMPRESSION: Mild decrease in infiltrate and/or atelectasis on the right.
[2016-03-18] MEDS ORDERED: KLOR-CON PO ONE (11:30)
[2016-03-18] MEDS ORDERED: POTASSIUM CHLORIDE 20% LIQUID GT ONE (11:30)
[2016-03-18] MEDS: LOVENOX SUBQ SCH (13:21)
[2016-03-18] MEDS: PROTONIX IV SCH (13:21)
[2016-03-18] MEDS ORDERED: LASIX IV ONE (13:49)
[2016-03-18] MEDS ORDERED: SSD CREAM TOP ONE (16:14)
[2016-03-18] MEDS ORDERED: XYLOCAINE 2% JELLY UROJECT ONE (16:30)
--- NOTE | 2016-03-18 16:31 | PROGRESS NOTE ---
DATE: 03/18/2016 SUBJECTIVE: Patient is intubated but he is getting more and more awake every day. OBJECTIVE: Vital Signs: Blood pressure 119/63, heart rate of 76, respiratory rate of 12, temperature 98.2 degrees. Cardiovascular: Regular rate and rhythm. Pulmonary: Bilateral breath sounds clear to auscultation. GI: Soft, nontender, nondistended. Bowel sounds were positive. Laboratory Data: White count 4.8, hemoglobin and hematocrit were 10 and 33, platelets of 136,000. Chemistries: Sodium potassium 3.2, BUN and creatinine of 29 and 1. Chest x-ray shows clearing atelectasis at the right base. PROBLEM LIST: 1. Status post cardiac arrest. Likely a ventricular tachycardia or ventricular fibrillation episode due to his low ejection fraction. We will continue to monitor him for that purpose. If he were to survive this episode, would consider implantable cardioverter defibrillator placement. 2. Ischemic versus toxic encephalopathy. Patient is at high risk for anoxic injury. Head CT was clear. Electroencephalogram is pending. He is slowly getting more awake though but I do not know how functional he will be once this has all stabilized. 3. Pneumonia, possible aspiration type. He is currently on vancomycin and Zosyn, and stable. They are weaning pressors as tolerated. 4. Congestive heart failure. He has got significant heart failure at baseline. Right now, blood pressure is marginal so I am not pushing to resume a lot of medications but he will need Coreg and ALEIDA inhibition and Aldactone once he has stabilized, which were all home medications. 5. Disposition pending neurological recovery. Neurology is unavailable right at this moment. We will follow up electroencephalogram results and clinical improvement, and follow.
[2016-03-18] MEDS ORDERED: XYLOCAINE 2% JELLY UROJECT UR ONE (16:40)
--- NOTE | 2016-03-18 17:11 | PROGRESS NOTE ---
DATE: 03/18/2016 SUBJECTIVE: Advance care planning. I met with his 3 sons, we discussed at length about his prognosis. Neurologically, he does and seem to be slowly improving, although he is certainly not at baseline and at this point is not breathing above the ventilator. Tried to do a weaning trial today and still was not having much in the way of spontaneous breaths, but he does respond to stimuli. He is moving his head. He does respond to noxious stimuli. We did agree after prolonged discussion in accordance with the patient's wishes, that he would be a Do Not Resuscitate. We would not pursue cardiopulmonary resuscitation, defibrillations, emergency push medications and would continue current treatment pending his neurological recovery. If he were to be ventilator dependent or life-support dependent, his family, which are the 3 sons feel that they likely would pursue withdrawal and comfort care versus long-term care, but that will be pending the rest of his issues.
[2016-03-18] MEDS: VERSED IV SCH (21:11)
[2016-03-18] MEDS: NS IV SCH (21:11)
--- NOTE | 2016-03-18 21:16 | PROGRESS NOTE ---
DATE: 03/18/2016 SUBJECTIVE: Patient seen and examined. Occasionally has some gag reflex and swallows sometimes and is currently breathing over the vent. However, does not follow commands or more for verbal stimulus. REVIEW OF SYSTEMS: No fevers noted and no seizures noted. OBJECTIVE: Vitals: Blood pressure 119/63, heart rate 76, respiratory rate 12, temperature 98 degrees. Cardiac: Regular rate and rhythm. Pulmonary: Bilateral breath sounds clear. No wheezing. No rhonchi. GI: Soft. Bowel sounds present. Extremities: No edema. BUSINESS SERVICES VICE PRESIDENT: Does not move for painful stimulus. LABORATORY: White count 4.8, hemoglobin 10, hematocrit 33, platelets 136,000. Electrolytes within normal limits. Chest x-ray showed clearing atelectasis in the right lung base. ASSESSMENT AND PLAN: 1. Status post cardiac arrest. 2. 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 3. 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 4. Aspiration pneumonia. PLAN: Patient's neurological status has failed to improve. Electroencephalogram has been performed and results are pending. I performed CPAP titration study and noted that patient had significant apneic events and hence the CPAP trial was terminated. Continue broad-spectrum antibiotics along with nebulization treatments and oxygen to keep saturation above 88-90%. Condition critical. Patient's prognosis is poor due to neurological recovery.
[2016-03-19] MEDS: ZOSYN 3.375 GM/NS 50 ML IV SCH ×4 (03:00→20:03)
[2016-03-19 05:35] LABS: BE 4.1 mmoll (-3.0-3.0); BLOOD TYPE ARTERIAL; DRAW SITE R RADIAL; O2(CT) 11.9 mL/dL (15.0-23.0); PCO2(98.6) 41 mmHg (35-45); PO2(98.6) 59 mmHg (60-100); SAMPLE BLOOD; SAO2 90.7 % (95.0-100.0); SRATE 12 BPM; THB 9.4 g/dL (11.5-17.4); TVOL 600 mL; pH(98.6) 7.45 (7.35-7.45)
[2016-03-19 05:38] LABS: ALLEN TEST YES; MODALITY VENTILATOR
[2016-03-19 06:45] LABS: HEMATOCRIT 33.3 % (42.0-52.0); HEMOGLOBIN 10.6 g/dL (14.0-18.0); MCH 27.9 PG (27-31); MCHC 31.8 g/dL (33-37); MCV 87.6 FL (81-99); MPV 12.1 FL (7.4-10.4); RBC 3.8 XMIL (4.7-6.1)
[2016-03-19 07:26] LABS: AGAP 7; BUN 25 mg/dL (8-22); CALCIUM 8.3 mg/dL (8.8-10.2); CHLORIDE 111 mmol/L (98-107); COSMO 297; POTASSIUM 3.3 mmol/L (3.5-5.1); SODIUM 145 mmol/L (136-145); TCO2 28 mmol/L (25-35)
[2016-03-19] MEDS: DUONEB (A & A) INH SCH ×3 (07:32→21:00)
--- NOTE | 2016-03-19 08:20 | Diag Imaging Result Document ---
PROCEDURE NAME: CHEST-PORTABLE - 03/19/2016 PORTABLE CHEST: COMPARISON: 03/18/2016. FINDINGS: The endotracheal tube remains in good position. There is a nasogastric tube overlying the esophagus and stomach. The heart remains mildly enlarged. There is a small right pleural effusions, which is unchanged. Mild increased interstitial markings in the right upper and lower lung, as well as in the midleft lung. There has been very little change compared to the prior study. IMPRESSION: No interval improvement.
[2016-03-19 10:39] LABS: HEPATITIS PROFILE ACUTE SEE COMMENTS (())
[2016-03-19] MEDS: SSD CREAM TOP SCH (12:51)
[2016-03-19] MEDS: VANCOMYCIN 1,300 MG in NS 250 ML IV SCH (12:51)
[2016-03-19] MEDS: LOVENOX SUBQ SCH (12:52)
[2016-03-19] MEDS: PROTONIX IV SCH (12:52)
--- NOTE | 2016-03-19 16:46 | PROGRESS NOTE ---
DATE: 03/19/2016 SUBJECTIVE: The patient is intubated. He has his eyes open, looking around the room. He does not follow commands. He does not respond to verbal. He does withdraw from pain. OBJECTIVE: Vital Signs: Blood pressure is 103/57, heart rate 95, respirations are 12, temperature is 98 degrees tympanic with oxygen saturations of 100%. On ventilator settings AC rate of 12, 40%, tidal volume 500, and PEEP of 5. Cardiovascular: Regular rate and rhythm. S1, S2 appreciated. Pulmonary: Breath sounds are clear. No increased work of breathing noted. Gastrointestinal: Soft, nontender, nondistended with bowel sounds in all 4 quadrants. : He has a Condom catheter in place with clear yellow urine draining. LABS: WBC is 3.89, with hemoglobin 10.6, hematocrit 33 and platelets of 121. Sodium is 145, potassium 3.3, BUN 25, creatinine 0.9, with a glucose of 172. PROBLEM LIST: 1. Status post cardiac arrest. 2. Ischemic versus toxic encephalopathy. 3. Pneumonia. Possible aspiration type. 4. Congestive heart failure. 5. Code status. He is a to-led-ajgncpchcyy level 2. PLAN: We will continue with his current regimen. Dr. Garcia will read his EEG in the morning. We will repeat labs. Further treatment pending results. Dictated by JAMIE Barragan for Vladimir Crouch MD
[2016-03-19] MEDS: VERSED IV SCH (19:13)
[2016-03-19] MEDS: NS IV SCH (19:13)
--- NOTE | 2016-03-19 19:41 | CONSULTATION ---
DATE OF CONSULTATION: 03/19/2016 AGE: 85 HISTORY OF PRESENT ILLNESS: The patient is seen in consultation at the request of the hospitalist in charge of the ICU here at [facility], [place]. He is apparently an old ex- who was admitted and resuscitated. He is now in the ICU intubated. He opens his eyes. He responds to management and treatment, but obviously cannot speak as an intubated patient and is relatively cooperative under these circumstances. To that end, he has history of BPH on terazosin as noted in the chart but I can find no history of operative intervention with regards to the genitourinary tract. The attempts at putting in the catheter, however, are typical for urethral stricture disease or stricture at the bladder neck. The staff are unable to place a catheter. To that end, I am called for placement of difficult Rangel catheterization. ALLERGIES: No known drug allergies. MEDICATIONS: Per the MAR, and current medication orders in the hospital. Medications as recently as 01/16/2016 included aspirin, atorvastatin, carvedilol, Plavix, Colace, iron sulfate, Lasix, lisinopril, metoprolol, omeprazole, terazosin 10 mg once a day and torsemide 10 mg 1 tab daily. PRIOR MEDICAL HISTORY: Coronary artery disease, CHF, high blood pressure. Pressure sores for which he received debridement and local management, included hyperbaric treatments performed elsewhere, probably in [place]. He has history of GERD. Hypercholesterolemia. History of glaucoma. History of stroke/TIA. SIGNIFICANT SURGICAL HISTORY: Unknown. Lung surgery. Bilateral pulmonary surgery. He has had focal debridement and management of pressure sores on the lower extremities, for and including tendon exposure. SOCIAL HISTORY: As reviewed reveals that he quit smoking about 36 years ago. He was a prior cigarette smoker. In the recent past, including November 2015 was a historic beer drinker, occasional in nature. Denies illicit drugs. Unemployed/retired, at 85 years of age. His usual cares is by the [facility]. His personal care physician was there. FAMILY HISTORY: Reveals that his mom and dad had heart trouble. IMMUNIZATIONS: He is up-to-date on his immunizations. REVIEW OF SYSTEMS: Historically was negative, but he is nonconversant and it is not possible to update those or review them at this time in his given condition. PHYSICAL EXAMINATION: Cardiac: He has an apparent regular heart rate. Historic left ventricular ejection fraction of 20% which is pretty bad and the likely cause of his congestive heart failure. Hematologic: Is anemic. Pulmonary: By way of the ventilator. Constitutionally: He pretty much stares straight ahead. He does guard some with any experience of pain. : Testicles descended. There is edema about the scrotum and penis. Epididymis normal. No obvious hernias. No evidence of surgery about the inguinal area or umbilicus. Please see dictation of difficult Rangel catheterization. Rectal: Digital rectal reveals an almost non-existent 10 g prostate gland and I question if there was a prostate present at all in this patient, but I find no history of operative intervention in that regard. He does not move his lower extremities. He does move his upper extremities slightly. Neurologic: His orientation is questionable neurologic review. 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 PLAN: Maintain the Rangel no matter what until such time that it he can be safely removed with hopes the patient can void spontaneously. Otherwise, consider indefinite use of the Rangel as a method of urine control and preservation of kidney function. I will re-evaluate the patient on a p.r.n. basis.
--- NOTE | 2016-03-19 19:48 | OPERATIVE NOTE ---
PROCEDURE DATE: 03/19/2016 AGE: 85 years of age. PREOPERATIVE DIAGNOSIS: Patient has been in urinary retention with scanned bladder volumes around 477 mL. Uncertain history of any history of genitourinary surgery, but apparently multiple attempts at placement of the catheter in the emergency room and here in ICU have been unsuccessful. POSTOPERATIVE DIAGNOSIS: Patient has been in urinary retention with scanned bladder volumes around 477 mL. Uncertain history of any history of genitourinary surgery, but apparently multiple attempts at placement of the catheter in the emergency room and here in ICU have been unsuccessful. PROCEDURE: Difficult Rangel catheterization by way of filiform. SURGEON: Taras Tyson DO. ANESTHESIA: Per ICU staff. COMPLICATIONS: None. SPECIMEN: Urine for culture. DRAINS: A 16-Paraguayan Rangel. DISPOSITION: Stable. FINDINGS: As described in the body of the dictation. COURSE OF PROCEDURE: Patient being in the frog-leg position was prepped and draped per routine. A copious amount of KY gel was injected by way of a syringe into the patient's urethra and trapped there. Attempt was made to pass a 20-Paraguayan Rangel which in the region of the prostate which could be bulbous urethral stricture in character or could be bladder neck contracture was encountered, and while I do think I traveled beyond that area, I did not do so sufficiently to get safe urine drainage from the bladder. Pursuant to that, upon removal of the 20-Paraguayan Rangel, the patient did experience urge to void and did evacuate in the bad a fairly large amount of urine. Because the patient is on the ventilator and is in here post cardiac arrest, he will need a catheter regardless of that for monitoring. Being unable to pass 1 by itself, I did lubricate a catheter guide and inserted that over the 20-Paraguayan Rangel. Again, tried to pass it, but had a tend to curl up in the bulbous urethra and/or prostatic bed and would not pass as desired on into the urinary bladder. Having failed catheter guide placement, having no dilators available, the decision was made to pass a smaller catheter over a wire that would creat enough stiffness to the item passed that it might negotiate fairly easily this narrow area if a smaller catheter was used. Pursuant to that, a poly-Adarsh coated Glidewire 035 in size was passed up into the urinary bladder. Again, patient had urge to void and voided about this wire confirming its position. A puncture was made in the distal tip of a 16-Paraguayan Rangel. This was passed over the wire up into the urinary bladder, inflated to 10 mL thereby accomplishing urinary drainage. It was secured to the left leg, tape strapped on the thigh and to a urometer drainage. The patient was cleansed and the catheter guide was handled sterilely after cleansing with Clorox and was sent to the Surgery Department for processing with the rest of the available catheters provided by the operating room for this intervention. The patient tolerated the procedure well, and is expected to do better with adequate urinary drainage past his stricture disease and should have the catheter left in place at all costs until such time that are certain the patient can void spontaneously or otherwise consider leaving a catheter in indefinitely and having it changed wherever he chooses to reside in the near future upon recovery from his recent cardiac arrest.
[2016-03-19 20:59] LABS: URINE SOURCE CATH
[2016-03-19 21:16] LABS: CLARITY BLOODY (CLEAR); COLOR RED
[2016-03-19 21:19] LABS: GLUCOSE URINE NEGATIVE (NEGATIVE)
[2016-03-19 21:20] LABS: BILIRUBIN URINE 2+ (NEGATIVE); BLOOD URINE 4+ (NEGATIVE); PROTEIN URINE 2+(100 mg/dL) mg/dL (NEGATIVE); UROBILINOGEN URINE NORMAL
[2016-03-19 21:21] LABS: LEUKOCYTES URINE 1+ (NEGATIVE); NITRITE URINE POSITIVE (NEGATIVE)
[2016-03-19 21:43] LABS: URINE CULTURE PL NEEDED? YES; URINE EPITHELIAL CELLS <10 /HPF (<10); URINE RBC TNTC /HPF (<10); URINE WBC TNTC /HPF (<10)
--- NOTE | 2016-03-19 22:19 | PROGRESS NOTE ---
DATE: 03/19/2016 SUBJECTIVE: Patient seen and examined. No acute events overnight. He continues to be on the ventilator unresponsive, not on any sedation. Review of systems unavailable since patient is intubated and unresponsive. OBJECTIVE: Vital Signs: Blood pressure 103/57, heart rate 95, respiratory rate 12, temperature 98, currently on ventilator with respiratory rate of 12-14, FiO2 of 40%, PEEP of 5, tidal volume of 500. Cardiac: Regular rate and rhythm. Lungs: Breath sounds clear. Gastrointestinal: Soft. Bowel sounds present. Extremities: No edema. LABS: White count 3.8, hemoglobin 10.6, hematocrit 33, platelets 121,000, sodium 140, potassium 3.8, BUN 26, creatinine 0.9. MEDICATIONS: Patient is currently on Tylenol, DuoNeb, Lovenox, morphine, Versed as needed, Protonix, Zosyn, vancomycin. DIAGNOSTIC: Microbiology shows Klebsiella pneumonia. Chest x-ray which was performed on 03/19/2016 showed no interval improvement, mild increased interstitial markings in right upper and lower lobe. ASSESSMENT AND PLAN: 1. Possible pneumonia. 2. Status post cardiac arrest. 3. Ventilator dependent respiratory failure. PLAN: 1. Continue broad-spectrum antibiotics for treatment of pneumonia along with symptomatic relief with bronchodilators and oxygen. The patient's neuro status continues to deteriorate. Of note it has been stable since the cardiac arrest. Prognosis is poor. Awaiting final report on EEG. Family aware of the prognosis. 2. Ventilator-dependent respiratory failure. Continue ventilatory support. The patient has failed CPAP trial and has been apneic. 3. Coronary artery disease. Management as per Primary Care and Cardiology. 4. Prognosis extremely poor. Condition continues to be critical. Continue to monitor. [facility]
[2016-03-20] MEDS: ZOSYN 3.375 GM/NS 50 ML IV SCH ×3 (02:40→20:23)
[2016-03-20 05:04] LABS: BE 6.9 mmoll (-3.0-3.0); BLOOD TYPE ARTERIAL; DRAW SITE R RADIAL; O2(CT) 15.5 mL/dL (15.0-23.0); PCO2(98.6) 43 mmHg (35-45); PO2(98.6) 140 mmHg (60-100); SAMPLE BLOOD; SAO2 99.8 % (95.0-100.0); SRATE 12 BPM; THB 11.2 g/dL (11.5-17.4); TVOL 500 mL; pH(98.6) 7.47 (7.35-7.45)
[2016-03-20 05:11] LABS: ALLEN TEST YES; MODALITY VENTILATOR
--- NOTE | 2016-03-20 08:53 | Diag Imaging Result Document ---
PROCEDURE NAME: CHEST-PORTABLE - 03/20/2016 CHEST, SINGLE VIEW PORTABLE: COMPARISON: 03/19/2016. FINDINGS: Endotracheal tube is in appropriate position. Nasogastric tube courses into the stomach though the distal tip is not visualized. There are postsurgical changes of the right lung. There is a stable linear opacity in the left mid lung zone. There is no definite change in the right pleural effusion and right lung edema. IMPRESSION: 1. No definite change in right pleural effusion and edema in the right lung. 2. Stable appearance of the left lung. 3. Stable cardiomegaly.
[2016-03-20] MEDS: DUONEB (A & A) INH SCH ×3 (09:00→21:00)
[2016-03-20] MEDS: SSD CREAM TOP SCH (09:56)
[2016-03-20] MEDS: LOVENOX SUBQ SCH (12:56)
[2016-03-20] MEDS: SODIUM CHLORIDE 0.9% INJ SCH (13:08)
[2016-03-20] MEDS: PROTONIX IV SCH (13:08)
[2016-03-20] MEDS: VANCOMYCIN 1,300 MG in NS 250 ML IV SCH (13:08)
--- NOTE | 2016-03-20 14:16 | PROGRESS NOTE ---
DATE: 03/20/2016 SUBJECTIVE: The patient is intubated. He opens his eyes spontaneously. He does not follow commands. He does not respond to verbal but he does continue to withdraw from pain. OBJECTIVE: Vital Signs: Blood pressure is 141/70 with a heart rate of 110. Respirations are 14. Temperature is 99.4 degrees temporal, with saturations of 100% per ventilator. Cardiovascular: Regular rate and rhythm. S1, S2 appreciated. Pulmonary: Breath sounds are clear per ventilation. Gastrointestinal: Abdomen is soft, nondistended, with bowel sounds in all 4 quadrants. Extremities: No clubbing, cyanosis, or edema. Bandages are noted to lower extremities. LABORATORY DATA: Urine returns bloody nitrite positive with ixo-iholiteo-py-count red blood cells, oia-rfshkssu-ej-count white blood cells with urine culture pending. ASSESSMENT AND PLAN: 1. Status post cardiac arrest. 2. Ischemic versus toxic encephalopathy. EEG read is pending. 3. Pneumonia probable aspiration type. 4. Congestive heart failure. 5. Ventilator-dependent respiratory failure. PLAN: We will continue with his current regimen. Dr. Tyson placed a Rangel catheter. We appreciate his help. We will continue with the current antibiotics. Watch urine culture results. Antibiotics may be changed appropriately as per according to sensitivity. We will continue with wound care to his lower extremities. Code status: The patient is a DNR level 2. Dictated by JAMIE Barragan for Vladimir Crouch MD
[2016-03-20] MEDS: NS IV SCH (20:23)
[2016-03-20] MEDS: VERSED IV SCH (20:23)
[2016-03-21] MEDS: ZOSYN 3.375 GM/NS 50 ML IV SCH ×4 (03:00→21:54)
[2016-03-21 06:33] LABS: HEMATOCRIT 31.1 % (42.0-52.0); HEMOGLOBIN 9.7 g/dL (14.0-18.0); MCH 27.5 PG (27-31); MCHC 31.2 g/dL (33-37); MCV 88.1 FL (81-99); RBC 3.53 XMIL (4.7-6.1)
[2016-03-21 06:38] LABS: AGAP 7; ALBUMIN 2.3 g/dL (3.5-5.0); ALKALINE PHOSPHATASE 101 U/L (32-122); BUN 15 mg/dL (8-22); CHLORIDE 111 mmol/L (98-107); COSMO 293; GOT 22 U/L (10-34); GPT 14 U/L (10-44); POTASSIUM 3.4 mmol/L (3.5-5.1); SODIUM 146 mmol/L (136-145); TCO2 28 mmol/L (25-35); TOTAL PROTEIN 5.3 g/dL (6.3-8.3)
[2016-03-21] MEDS: DUONEB (A & A) INH SCH ×3 (08:20→21:39)
[2016-03-21] MEDS: NS IV SCH ×2 (10:22→20:03)
[2016-03-21] MEDS: VERSED IV SCH ×2 (10:22→20:03)
--- NOTE | 2016-03-21 12:37 | EEG REPORT ---
DATE: 03/16/2016 COMMENT: This is a digitally recorded electroencephalogram done on an ICU patient requiring mechanical ventilation. FINDINGS: Polymorphic and rhythmic theta activity at mostly 6-7 Hz is the dominant rhythm over both hemispheres. Some slowing into the delta range at 3-4 Hz is present frontally intermittently. Occasional runs of 8 hertz rhythm are present posteriorly, but no sustained posterior dominant rhythm is identified. There was some muscle contraction and chewing artifact which did not hinder interpretation. There was no spontaneous variation to correlate with drowsing or sleep. Photic stimulation did not alter the record. No other activating procedures were done. No definite epileptiform discharge was identified. INTERPRETATION: Abnormal electroencephalogram because of generalized slowing. CORRELATION: This is indicative of a diffuse encephalopathy and is nonspecific. There is nothing on this record to suggest the presence of seizure or of focal encephalopathy. [facility]
[2016-03-21] MEDS: PROTONIX IV SCH (13:04)
[2016-03-21] MEDS: SODIUM CHLORIDE 0.9% INJ SCH (13:04)
[2016-03-21] MEDS: VANCOMYCIN 1,300 MG in NS 250 ML IV SCH (13:04)
[2016-03-21] MEDS: LOVENOX SUBQ SCH (13:05)
[2016-03-21] MEDS: SSD CREAM TOP SCH (13:18)
--- NOTE | 2016-03-21 18:00 | PROGRESS NOTE ---
DATE: 03/21/2016 SUBJECTIVE: The patient is intubated and sedated with Versed. He does not follow commands. He does move extremities and open his eyes at random. OBJECTIVE: Vital Signs: Blood pressure is 122/71 with a heart rate of 111. Respirations are 14. Temperature is 99.2 degrees tympanic with oxygen saturations of 99-100% on 30% oxygen per ventilator. Cardiovascular: Regular rate and rhythm. S1, S2 appreciated. Pulmonary: Breath sounds are clear with no increased work of breathing. They are per ventilator. Gastrointestinal: Abdomen is soft, nondistended, with bowel sounds in all 4 quadrants. Extremities: No clubbing, cyanosis, or edema. Pulses are palpable. Bandages are noted to lower extremities. LABS: WBC is 3.74, with hemoglobin 9.7, hematocrit 31.1 and platelets of 100,000. Sodium is 146, potassium 3.4, BUN 15, creatinine 0.6 with a glucose of 136. ASSESSMENT AND PLAN: 1. Status post cardiac arrest. 2. Ischemic versus toxic encephalopathy. 3. Pneumonia probable aspiration type. 4. CHF. 5. Ventilator dependent respiratory failure. PLAN: Will continue with his current regimen with antibiotic coverage of vancomycin and Zosyn. Urine culture revealed no growth. Of note, we will continue with wound care to his lower extremities. Of note, the patient is receiving tube feeds of Jevity. He is tolerating well. Dictated by JAMIE Barragan for Vladimir Crouch MD
[2016-03-21] MEDS: MORPHINE IV PRN (21:54)
[2016-03-21] MEDS: TYLENOL PO PRN (21:55)
[2016-03-22] MEDS: VANCOMYCIN 1,300 MG in NS 250 ML IV SCH ×2 (01:00→16:00)
[2016-03-22] MEDS: ZOSYN 3.375 GM/NS 50 ML IV SCH ×4 (02:56→20:48)
[2016-03-22] MEDS: MORPHINE IV PRN ×4 (02:57→21:32)
[2016-03-22] MEDS: TYLENOL PO PRN (02:57)
[2016-03-22 06:29] LABS: HEMATOCRIT 32.3 % (42.0-52.0); HEMOGLOBIN 10.2 g/dL (14.0-18.0); MCH 28.2 PG (27-31); MCHC 31.6 g/dL (33-37); MCV 89.2 FL (81-99); RBC 3.62 XMIL (4.7-6.1)
[2016-03-22 06:49] LABS: AGAP 7; ALBUMIN 2.5 g/dL (3.5-5.0); ALKALINE PHOSPHATASE 102 U/L (32-122); BUN 16 mg/dL (8-22); CALCIUM 8.2 mg/dL (8.8-10.2); CHLORIDE 110 mmol/L (98-107); COSMO 291; GOT 22 U/L (10-34); GPT 16 U/L (10-44); POTASSIUM 3.7 mmol/L (3.5-5.1); SODIUM 145 mmol/L (136-145); TCO2 28 mmol/L (25-35); TOTAL PROTEIN 5.7 g/dL (6.3-8.3)
[2016-03-22] MEDS: DUONEB (A & A) INH SCH ×3 (08:42→21:32)
[2016-03-22] MEDS: SSD CREAM TOP SCH (09:23)
--- NOTE | 2016-03-22 10:17 | PROGRESS NOTE ---
DATE: 03/22/2016 SUBJECTIVE: The patient continues intubated and sedated with Versed. He does not follow commands. He does move extremities at random and he does withdraw from pain. OBJECTIVE: Vital Signs: Blood pressure is 111/66 with a heart rate of 111. Respirations are 14. Temperature is 98 degrees temporal with oxygen saturations 98-100% via ventilator. Cardiovascular: Regular rate and rhythm. S1 and S2 appreciated. Pulmonary: Breath sounds are clear with no increased work of breathing. Respirations are per ventilator. Gastrointestinal: Abdomen is soft, nondistended, with bowel sounds in all 4 quadrants. Extremities: No clubbing, cyanosis, or edema. Pulses are palpable. Bandages, again, are noted to the lower extremities. LABORATORY DATA: WBC is 3.3 with hemoglobin 10.2, hematocrit 32.3, and platelets of 95,000. Sodium is 145. Potassium 3.7. BUN is 16. Creatinine 0.7 with a glucose of 126. ASSESSMENT AND PLAN: 1. Status post cardiac arrest. 2. Ischemic versus toxic encephalopathy. 3. Thrombocytopenia. 4. Pneumonia possible aspiration type. 5. Ventilator dependent respiratory failure. We will continue with his current regimen, continue vancomycin and Zosyn. Wound care will continue their treatment of his lower extremity. Continue with Jevity tube feeds. Platelets have dropped, will consider holding Lovenox. Dictated by JAMIE Barragan for Vladimir Crouch MD
[2016-03-22] MEDS: LOVENOX SUBQ SCH (14:12)
[2016-03-22 14:24] LABS: BE 4.6 mmoll (-3.0-3.0); BLOOD TYPE ARTERIAL; DRAW SITE R RADIAL; O2(CT) 18.2 mL/dL (15.0-23.0); PCO2(98.6) 38 mmHg (35-45); PO2(98.6) 67 mmHg (60-100); SAMPLE BLOOD; SAO2 95.1 % (95.0-100.0); THB 14.1 g/dL (11.5-17.4); pH(98.6) 7.48 (7.35-7.45)
[2016-03-22] MEDS: PROTONIX IV SCH (16:27)
[2016-03-22 17:15] LABS: ALLEN TEST YES; MODALITY VENTILATOR
[2016-03-22] MEDS: VERSED IV SCH (20:23)
[2016-03-22] MEDS: NS IV SCH (20:23)
[2016-03-23] MEDS: ZOSYN 3.375 GM/NS 50 ML IV SCH ×4 (02:54→21:15)
--- NOTE | 2016-03-23 04:26 | PROGRESS NOTE ---
DATE: 03/22/2016 SUBJECTIVE: The patient is seen and examined this afternoon. Family at the bedside. The patient moving his upper extremity. Not following any commands. REVIEW OF SYSTEMS: Unable to obtain since patient is intubated. Off of Versed since yesterday. PHYSICAL EXAMINATION: Vital Signs: Blood pressure 111/66, heart rate 111, respiratory rate is 14, temperature 98 degrees, oxygen saturation 98% on 100% on the AC mode with FiO2 of 40%. Cardiac: Regular rate and rhythm. Systolic murmur heard. Lungs: Breath sounds present bilaterally. No rhonchi heard. Minimal crackles at the bases. GI: Soft. Bowel sounds present. Extremities: No edema. DIAGNOSTIC DATA: White count 3.3, hemoglobin 10.2, hematocrit 33, platelets 95, 000. Sodium 144, potassium 3.7, BUN and creatinine within normal limits. EEG showed diffuse encephalopathy which is nonspecific. No focal seizures noted. ASSESSMENT: 1. Ventilatory-dependent respiratory failure. 2. Pneumonia, possibly aspiration. 3. Status post cardiac arrest. PLAN: I had an extensive discussion with the family members. We attempted CPAP trial today which showed a 15-20 seconds of apneas, so we will repeat CPAP titration study in the morning. Prognosis for neurological recovery is extremely poor. Continue broad-spectrum antibiotics, vancomycin and Zosyn, as well as tube feeds. I discussed with Dr. Grant Hall, who mentions that the patient is at a very high risk for any type of procedure, even if it is minor such as Trach since patient has a significantly high risk of cardiac arrest given his severity of heart disease and aortic stenosis. I ordered CPAP trial and reviewed the ABG. We will continue monitoring the patient while on CPAP. Cannot extubate the patient, since patient is altered. Plan discussed with Dr. Crouch. We will continue to follow. [facility]
[2016-03-23] MEDS: TYLENOL PO PRN (04:34)
[2016-03-23 05:50] LABS: BE 5.5 mmoll (-3.0-3.0); BLOOD TYPE ARTERIAL; DRAW SITE L RADIAL; METHB 1.2 % (0.0-1.5); O2(CT) 12.9 mL/dL (15.0-23.0); PCO2(98.6) 34 mmHg (35-45); PO2(98.6) 85 mmHg (60-100); SAMPLE BLOOD; SAO2 99.1 % (95.0-100.0); SRATE 14 BPM; THB 9.5 g/dL (11.5-17.4); TVOL 500 mL; pH(98.6) 7.53 (7.35-7.45)
[2016-03-23 06:09] LABS: HEMOGLOBIN 10.8 g/dL (14.0-18.0); MCHC 30.9 g/dL (33-37); MCV 90.7 FL (81-99); MPV 12.9 FL (7.4-10.4); RBC 3.86 XMIL (4.7-6.1)
[2016-03-23 06:15] LABS: ALLEN TEST YES; MODALITY VENTILATOR
[2016-03-23 06:24] LABS: AGAP 9; ALBUMIN 2.5 g/dL (3.5-5.0); ALKALINE PHOSPHATASE 118 U/L (32-122); BUN 27 mg/dL (8-22); CALCIUM 8.2 mg/dL (8.8-10.2); CHLORIDE 108 mmol/L (98-107); COSMO 291; GOT 29 U/L (10-34); GPT 18 U/L (10-44); POTASSIUM 4.1 mmol/L (3.5-5.1); SODIUM 143 mmol/L (136-145); TCO2 26 mmol/L (25-35)
[2016-03-23] MEDS ORDERED: NS IV PRN (09:11)
[2016-03-23] MEDS ORDERED: VERSED IV PRN (09:11)
[2016-03-23] MEDS: SSD CREAM TOP SCH (09:13)
[2016-03-23] MEDS: MORPHINE IV PRN (10:09)
[2016-03-23] MEDS: DUONEB (A & A) INH SCH ×3 (10:37→21:30)
--- NOTE | 2016-03-23 10:38 | PROGRESS NOTE ---
DATE: 03/23/2016 SUBJECTIVE: This patient is lying in bed. He is more alert. He does nod his head yes and no. He is intubated. OBJECTIVE: Vital Signs: Blood pressure is 107/59 with a heart rate of 92. Respirations are 16. Temperature is 100.2 degrees temporal. Cardiovascular: Regular rate and rhythm. S1 and S2 appreciated. Pulmonary: Breath sounds are clear. No increased work of breathing noted. Gastrointestinal: Abdomen is soft, nondistended, nontender with bowel sounds in all 4 quadrants. Tube feedings continue. Extremities: No clubbing, cyanosis, or edema. Pulses are palpable. LABORATORY DATA: WBC is 3.54. Hemoglobin is 10.8. Hematocrit 35. Platelets of 124,000. Sodium is 143. Potassium 4.1. BUN 27. Creatinine 0.9 with a glucose of 117. His total bilirubin is 1.90. ASSESSMENT AND PLAN: 1. Status post cardiac arrest. 2. Ischemic versus toxic encephalopathy. 3. Thrombocytopenia. 4. Possible pneumonia, possible aspiration type. 5. Ventilator dependent respiratory failure. PLAN: The patient is waking up. He is nodding yes and no. He just follows simple commands. We will continue with his current treatment and trend labs. Will continue with broad-spectrum antibiotics of vancomycin and Zosyn. Dictated by JAMIE Barragan for Vladimir Crouch MD
[2016-03-23 11:25] LABS: BE 5.9 mmoll (-3.0-3.0); BLOOD TYPE ARTERIAL; DRAW SITE L RADIAL; O2(CT) 10.7 mL/dL (15.0-23.0); PCO2(98.6) 39 mmHg (35-45); PO2(98.6) 79 mmHg (60-100); SAMPLE BLOOD; SAO2 98.7 % (95.0-100.0); THB 7.9 g/dL (11.5-17.4); pH(98.6) 7.49 (7.35-7.45)
[2016-03-23 11:38] LABS: ALLEN TEST YES; MODALITY VENTILATOR
[2016-03-23] MEDS: PROTONIX IV SCH (16:28)
[2016-03-23] MEDS: SODIUM CHLORIDE 0.9% INJ SCH (16:28)
[2016-03-23] MEDS: LOVENOX SUBQ SCH (16:28)
[2016-03-23] MEDS: VANCOMYCIN 1,300 MG in NS 250 ML IV SCH (16:29)
[2016-03-23 17:45] LABS: BE 1.1 mmoll (-3.0-3.0); BLOOD TYPE ARTERIAL; DRAW SITE R RADIAL; O2(CT) 15.6 mL/dL (15.0-23.0); PCO2(98.6) 37 mmHg (35-45); PO2(98.6) 114 mmHg (60-100); SAMPLE BLOOD; SAO2 99.2 % (95.0-100.0); THB 11.4 g/dL (11.5-17.4); pH(98.6) 7.44 (7.35-7.45)
[2016-03-23 17:51] LABS: MODALITY CANNULA
[2016-03-23 17:52] LABS: ALLEN TEST YES
[2016-03-24] MEDS: MORPHINE IV PRN (00:10)
[2016-03-24] MEDS: ZOSYN 3.375 GM/NS 50 ML IV SCH ×3 (04:43→17:16)
[2016-03-24 07:16] LABS: HEMATOCRIT 36.9 % (42.0-52.0); HEMOGLOBIN 11.7 g/dL (14.0-18.0); MCH 28.5 PG (27-31); MCHC 31.7 g/dL (33-37); MCV 89.8 FL (81-99); MPV 13.2 FL (7.4-10.4); RBC 4.11 XMIL (4.7-6.1)
[2016-03-24 07:41] LABS: AGAP 14; ALBUMIN 2.8 g/dL (3.5-5.0); ALKALINE PHOSPHATASE 136 U/L (32-122); BUN 38 mg/dL (8-22); CALCIUM 8.8 mg/dL (8.8-10.2); CHLORIDE 108 mmol/L (98-107); COSMO 301; GOT 70 U/L (10-34); GPT 36 U/L (10-44); MAGNESIUM 2.5 mg/dL (1.5-2.7); POTASSIUM 4.4 mmol/L (3.5-5.1); SODIUM 147 mmol/L (136-145); TCO2 25 mmol/L (25-35); TOTAL PROTEIN 6.2 g/dL (6.3-8.3)
[2016-03-24] MEDS: SSD CREAM TOP SCH (08:37)
[2016-03-24] MEDS: NS 1,000 ML IV SCH (08:40)
--- NOTE | 2016-03-24 09:17 | PROGRESS NOTE ---
DATE: 03/23/2016 SUBJECTIVE: Patient seen and examined this morning. Mental status has unchanged. Patient is moving his extremities and does not follow commands to me but as per the nurses , patient has squeezed their hand and followed some commands intermittently. On CPAP since morning. REVIEW OF SYSTEMS: No fevers. He has been stable hemodynamically. PHYSICAL EXAMINATION: Vital Signs: Blood pressure 107/59, heart rate 92, respiratory rate 16, temperature 100.2 degrees. Cardiac: Regular rate and rhythm. Lungs: Clear bilaterally. GI: Soft, bowel sounds present. 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 Extremities: No clubbing. LABS: White count 3.4, hemoglobin 10.8, hematocrit 35. Electrolytes within normal limits. Ordered ABG on the CPAP trial which showed pH of 7.49, pCO2 39, PO2 79, bicarb 29, on PEEP of 5 and pressure support of 12. Microbiology: Sputum has shown Klebsiella on 03/15, none, positive recently. MEDICATIONS: DuoNebs, Lovenox, vancomycin, morphine, phenylephrine, vancomycin , and Zosyn. Discontinued the phenylephrine, morphine, Protonix. ASSESSMENT AND PLAN: 1. Acute respiratory failure status post cardiac arrest leading to intubation. 2. Status post cardiac arrest. 3. History of coronary artery disease and severe aortic stenosis. 4. Encephalopathy. PLAN: The patient was extubated after CPAP trial . However, it is unclear if he will need reintubation since his mental status is poor. We notified family about extubation repeat ABG was performed after extubation on nasal cannula and the pH has remained within normal limits. Continue broad-spectrum antibiotics, supportive care, management of coronary artery disease maybe as per cardiology. Long-term prognosis continues to remain poor. [facility]
[2016-03-24] MEDS: DUONEB (A & A) INH SCH ×3 (10:00→21:03)
[2016-03-24] MEDS: LOVENOX SUBQ SCH (12:39)
[2016-03-24] MEDS: SODIUM CHLORIDE 0.9% INJ SCH (12:40)
[2016-03-24] MEDS: PROTONIX IV SCH (12:40)
[2016-03-24] MEDS: VANCOMYCIN 1,300 MG in NS 250 ML IV SCH (17:09)
--- NOTE | 2016-03-24 18:55 | PROGRESS NOTE ---
DATE: 03/24/2016 SUBJECTIVE: The patient is lying bed in bed. He is extubated and currently on 2 L nasal cannula with sats of 96-100%. He is restless. He is not answering questions at present. The nursing staff states that he did answer questions through the night and early this morning. OBJECTIVE: Vital Signs: Blood pressure is 120/64 with a heart rate of 94, respirations are 22, temperature is 98.5 degrees temporal with oxygen saturations of 96-100% on 2 L nasal cannula. Cardiovascular: Regular rate and rhythm. S1 and S2 appreciated. Pulmonary: He does have wheezes and rhonchi scattered with no increased work of breathing at present. Gastrointestinal: Abdomen is soft, nontender with bowel sounds in all 4 quadrants. Tube feedings continue. Extremities: No clubbing, cyanosis, or edema. Pulses are palpable. LABORATORY: WBC is 5.91 with a hemoglobin of 11.7, hematocrit 36.9, and platelets of 139,000, sodium is 147, potassium 4.4, BUN 38, creatinine 1.3 with a glucose of 84. Total bilirubin is 3, AST of 70, and alkaline phosphatase of 136. ASSESSMENT AND PLAN: 1. Status post cardiac arrest. 2. Ischemic versus toxic encephalopathy. 3. Thrombocytopenia. This is stable. 4. Possible pneumonia. 5. Possible aspiration type. 6. Ventilator dependent. 7. Chronic respiratory failure. 8. Encephalopathy. PLAN: We will continue on nasal cannula. The patient is a DNR level 2. We will not reintubate although on discussion with the family we can increase the BiPAP, they do not wish intubation or mechanical ventilation. We will continue his tube feedings. Continue with the current medication regimen. We will trend labs and replete electrolytes as necessary. Dictated by JAMIE Barragan for Vladimir Crouch MD
[2016-03-24 21:36] LABS: BE 0.8 mmoll (-3.0-3.0); BLOOD TYPE ARTERIAL; DRAW SITE L BRACHIAL; METHB 1.2 % (0.0-1.5); O2(CT) 16.4 mL/dL (15.0-23.0); PCO2(98.6) 32 mmHg (35-45); PO2(98.6) 317 mmHg (60-100); SAMPLE BLOOD; SAO2 100.2 % (95.0-100.0); THB 11.4 g/dL (11.5-17.4); pH(98.6) 7.48 (7.35-7.45)
[2016-03-24 21:42] LABS: MODALITY VENTIMASK
[2016-03-24 21:43] LABS: ALLEN TEST NO
[2016-03-25] MEDS: ZOSYN 3.375 GM/NS 50 ML IV SCH ×5 (05:00→22:18)
--- NOTE | 2016-03-25 05:14 | PROGRESS NOTE ---
DATE: 03/24/2016 SUBJECTIVE: Patient seen and examined in the afternoon of 03/24/2016. The patient has been extubated since yesterday and is currently on 2 L. Not in significant respiratory distress but appears restless and does not follow any commands. No obvious respiratory distress noted. REVIEW OF SYSTEMS: Negative for fevers. No obvious seizures. PHYSICAL EXAMINATION: Vitals: Blood pressure 120/64, heart rate 94, respiratory rate is 22, temperature 98 degrees, oxygen saturation 96-100% on 2 L. General: Patient is an elderly male, not in significant distress. Appears confused. Cardiac: Regular rate and rhythm. Lungs: Minimal crackles noted. Abdomen: Soft. Extremities: No edema. Head and Neck: HEENT noted NG tube. LABS: White count 5.1, hemoglobin 11.7, hematocrit 36, platelets 139,000. CBC within normal limits. ASSESSMENT AND PLAN: 1. Hypoxic respiratory failure. 2. Status post extubation. 3. History of cardiac arrest. 4. Coronary artery disease and aortic stenosis. 5. Encephalopathy. PLAN: The patient is currently on 2 L of oxygen, status post extubation. Continue to monitor closely. Repeat ABG if patient becomes more lethargic. He is DNR. Continue aspiration precautions. As per nurse, the patient had poor gag reflex. He is awaiting a swallow evaluation and further workup before the NG tube is discontinued. Management of coronary artery disease and aortic stenosis as per cardiology. Overall long-term prognosis is poor. He might need placement in a detention facility for management.
[2016-03-25 06:40] LABS: ALBUMIN 2.4 g/dL (3.5-5.0); CALCIUM 8.6 mg/dL (8.8-10.2); MAGNESIUM 2.5 mg/dL (1.5-2.7); POTASSIUM 4.4 mmol/L (3.5-5.1); TOTAL BILIRUBIN 2.9 mg/dL (0.20-1.00); TOTAL PROTEIN 5.9 g/dL (6.3-8.3)
[2016-03-25] MEDS: NS 1,000 ML IV SCH ×2 (07:22→10:53)
[2016-03-25] MEDS: DUONEB (A & A) INH SCH ×3 (07:59→20:00)
[2016-03-25] MEDS: SSD CREAM TOP SCH (10:56)
[2016-03-25] MEDS: SODIUM CHLORIDE 0.9% INJ SCH (14:26)
[2016-03-25] MEDS: PROTONIX IV SCH (14:26)
[2016-03-25] MEDS: LOVENOX SUBQ SCH (14:27)
--- NOTE | 2016-03-25 20:01 | PROGRESS NOTE ---
DATE: 03/25/2016 SUBJECTIVE: The patient is lying in the bed. He becomes restless at times. At times he does not answer. At times he will answer questions in 1-2 words. He has been extubated since yesterday afternoon. He is currently on 2 L. He appears in no distress. OBJECTIVE: Vital Signs: Blood pressure is 122/72 with a heart rate of 108, respirations are 16, temperature is 96.8 degrees tympanic with oxygen saturations of 99-100% on 2 L nasal cannula. Cardiovascular: Regular rate and rhythm. S1 and S2 appreciated. Pulmonary: He does have some scattered crackles throughout with no increased work of breathing noted. Gastrointestinal: Abdomen is soft, nondistended, nontender with bowel sounds in all 4 quadrants. Extremities: No clubbing, cyanosis, or edema. Pulses are palpable. continue. LABORATORY DATA: Sodium is 146, potassium 4.4, BUN 49, creatinine 1.5 with a glucose of 118. Total bilirubin is 2.90 with AST of 116, ALT of 169 and alkaline phosphatase of 167. ASSESSMENT AND PLAN: 1. Status post cardiac arrest. 2. Hypoxic respiratory failure. 3. Status post extubation. 4. Ischemic versus toxic encephalopathy. 5. Possible pneumonia aspiration type. 6. Chronic respiratory failure. PLAN: Will continue to follow with Dr. Ordoñez in Pulmonology. Of note, the patient is a DNR level 2. We will not re-intubate. We will continue his tube feedings. We will continue his current medication regimen. As his bilirubin has been increasing, an abdominal ultrasound has been performed with results pending. Dictated by JAMIE Barragan for Vladimir Crouch MD
[2016-03-25] MEDS: MORPHINE IV PRN (22:47)
[2016-03-25] MEDS: DUONEB (A & A) INH PRN (23:00)
[2016-03-26] MEDS: NS 1,000 ML IV SCH (00:54)
[2016-03-26] MEDS: DUONEB (A & A) INH PRN (03:26)
[2016-03-26] MEDS: MORPHINE IV PRN (03:35)
[2016-03-26] MEDS: ZOSYN 3.375 GM/NS 50 ML IV SCH ×4 (04:11→22:09)
--- NOTE | 2016-03-26 04:30 | PROGRESS NOTE ---
DATE: 03/25/2016 SUBJECTIVE: Patient seen and examined. Mental status unchanged. Has occasional restlessness. Currently on 2 L of oxygen. Has some shortness of breath, coughing. REVIEW OF SYSTEMS: Negative for fevers. No chills. PHYSICAL EXAMINATION: Vitals: Blood pressure 122/72, heart rate 108, respiratory rate is 16, temperature is 96 degrees, oxygen saturation is 99% on 2 L. Cardiac: Regular rhythm. Lungs: Some crackles noted bilaterally. GI: Abdomen is soft. Nondistended. Extremities: No edema. LABS: Sodium 146, potassium 4.4, BUN 49, creatinine 1.5. ASSESSMENT AND PLAN: 1. Status post cardiac arrest. 2. Hypoxic respiratory failure. 3. Possible aspiration. PLAN: Patient's mental status is unchanged. Continue supportive care. Aspiration precautions. Patient is DNR. Hence, he will not be reintubated. Continue supportive care with nebulization treatments and oxygen to keep saturation above 88-90%. May transfer out of ICU in 1-2 days.
--- NOTE | 2016-03-26 07:25 | Diag Imaging Result Document ---
PROCEDURE NAME: US ABDOMEN-COMPLETE - 03/25/2016 COMPLETE ABDOMINAL ULTRASOUND: COMPARISON: None available. FINDINGS: There is ascites tracking around the liver and the spleen. There is non shadowing echogenic material in the gallbladder lumen indicating sludge. No shadowing stones are identified. The gallbladder wall is thickened measuring up to 7.8 mm in thickness. At least in part, this is due to the patient's ascites. Correlate clinically to exclude a component of cholecystitis. The common bile duct appears normal in diameter. The liver is grossly unremarkable. Portal venous flow is hepatopetal and somewhat pulsatile, which can be associated with congestive heart failure. There is evidence of a pleural effusion. The spleen, visualized pancreas, aorta, IVC, and kidneys are essentially unremarkable. IMPRESSION: 1. Ascites. 2. Right pleural effusion. 3. Echogenic sludge in the gallbladder lumen with gallbladder wall thickening. At least in part, this wall thickening is probably due to the patient's ascites. Please correlate clinically to exclude cholecystitis. 4. Pulsatile portal venous flow, which can often be related to congestive heart failure.
[2016-03-26] MEDS: DUONEB (A & A) INH SCH ×5 (08:19→22:50)
[2016-03-26] MEDS ORDERED: ALBUTEROL NEB INH ONE (09:29)
[2016-03-26] MEDS ORDERED: SOLU-MEDROL IV ONE (09:29)
[2016-03-26] MEDS ORDERED: NS 500 ML IV ONE (10:19)
[2016-03-26] MEDS ORDERED: D5 1/2 NS 1,000 ML IV SCH (10:30)
[2016-03-26 10:56] LABS: BE 1.9 mmoll (-3.0-3.0); BLOOD TYPE ARTERIAL; DRAW SITE L RADIAL; METHB 1.2 % (0.0-1.5); O2(CT) 15.5 mL/dL (15.0-23.0); PCO2(98.6) 36 mmHg (35-45); PO2(98.6) 127 mmHg (60-100); SAMPLE BLOOD; SAO2 99.5 % (95.0-100.0); THB 11.3 g/dL (11.5-17.4); pH(98.6) 7.46 (7.35-7.45)
[2016-03-26 10:58] LABS: MODALITY CANNULA
[2016-03-26] MEDS ORDERED: LASIX IV ONE (10:58)
[2016-03-26 10:59] LABS: ALLEN TEST YES
[2016-03-26] MEDS: D5 1/2 NS 1,000 ML IV SCH (11:11)
--- NOTE | 2016-03-26 11:23 | PROGRESS NOTE ---
DATE: 03/26/2016 SUBJECTIVE: The patient has no focal complaints, but is very minimally responsive. OBJECTIVE: Vital Signs: Blood pressure is 101/63, heart rate is 79, respiratory rate 16, temperature 97.5 degrees, 100% on 2 L. Cardiovascular: Regular rate and rhythm. Pulmonary: Diffuse wheezing. GI: Soft, nontender, nondistended. Bowel sounds are positive. LABORATORY DATA: White count is normal. Hemoglobin and hematocrit 11 and 36. Platelets of 139. Sodium is 146, BUN and creatinine have risen to 49 and 1.5, which is the highest it has been. Total bilirubin is up 2.9. PROBLEM LIST: 1. Status post cardiac arrest secondary to likely a ventricular arrhythmia. He has recovered from this event. He is now extubated. Still has significant dilated cardiomyopathy. 2. Possible aspiration type pneumonia. He is on Zosyn; he has been on that for 10 days, though. White count is normal. 3. Hypernatremia. We will put him on D5 half. 4. Volume overload. Clinically he has deteriorated. 5. Chest x-ray looks like he has got new infiltrates, possible effusion on the right side. I do not know how well he will do with thoracentesis, so we will attempt to diurese him and monitor his chest x-rays. DISPOSITION: He is not improving. I think the family has decided not to reintubate. I will have a long discussion with them about prognosis because I think at this point we are looking at total care, possibly feeding tube, and I do not think the family based on previous conversations is going to appreciate any more long-term evaluation from that standpoint. So, we will continue to follow very closely and further management per other issues there.
--- NOTE | 2016-03-26 11:24 | Diag Imaging Result Document ---
PROCEDURE NAME: CHEST-PORTABLE - 03/26/2016 ERECT CHEST, TWO VIEWS: COMPARISON: Compared to 03/20/2016. FINDINGS: There are sutures in the mid right chest. Interval increase in the size of the moderate sized right-sided pleural effusion. There is atelectasis or infiltrates in the mid and lower lungs. Heart remains enlarged. Vascular prominence is more pronounced on the current exam. There may be small left pleural effusion as well. IMPRESSION: Interval worsening in the pulmonary edema, atelectasis, and pleural effusions.
[2016-03-26] MEDS: PROTONIX IV SCH (14:50)
[2016-03-26] MEDS: SODIUM CHLORIDE 0.9% INJ SCH (14:50)
[2016-03-26] MEDS: LOVENOX SUBQ SCH (14:50)
[2016-03-26] MEDS: SOLU-MEDROL IV SCH (17:49)
[2016-03-26] MEDS: SSD CREAM TOP SCH (17:49)
[2016-03-26] MEDS: LASIX IV SCH (22:08)
--- NOTE | 2016-03-26 22:25 | PROGRESS NOTE ---
DATE: 03/26/2016 SUBJECTIVE: Patient seen and examined. Continues to be very lethargic and minimally responsive. No new complaints. REVIEW OF SYSTEMS: No seizures or fevers noted. Other review of systems unable to obtain since patient is nonverbal. OBJECTIVE: Vitals: Blood pressure 101/63, heart rate 70, respiratory rate 16, temperature afebrile, oxygen saturation is 100% on 2 L. General: Not in respiratory distress. Heart: S1- S2 heard. Lungs: Crackles present bilaterally with wheezing. GI: Soft. Bowel sounds present. Extremities: No edema. LABS: White count is normal, hemoglobin is 11, hematocrit 36, platelets 139,000. Sodium 146, creatinine is 1.5. ASSESSMENT AND PLAN: 1. Hypoxic respiratory failure. 2. Aspiration pneumonia. 3. Status post cardiac arrest. PLAN: Patient has remained unchanged mental status hammonds. Continue aspiration precautions and oxygen along with Zosyn for aspiration pneumonia. Chest x-ray shows slight worsening of the infiltrates with small pleural effusion. Agree with diuresis. Long-term prognosis poor.
[2016-03-27] MEDS: SOLU-MEDROL IV SCH ×3 (00:28→17:21)
[2016-03-27] MEDS: D5 1/2 NS 1,000 ML IV SCH (03:32)
[2016-03-27] MEDS: ZOSYN 3.375 GM/NS 50 ML IV SCH ×4 (05:40→23:11)
[2016-03-27] MEDS ORDERED: CALMOSEPTINE OINTMENT TOP PRN (06:40)
[2016-03-27 07:19] LABS: HEMATOCRIT 38.4 % (42.0-52.0); HEMOGLOBIN 12.4 g/dL (14.0-18.0); MCHC 32.3 g/dL (33-37); MCV 86.7 FL (81-99); PLT 165 X1000 (130-400); RBC 4.43 XMIL (4.7-6.1)
[2016-03-27] MEDS: DUONEB (A & A) INH SCH ×5 (07:19→23:02)
[2016-03-27 07:35] LABS: CALCIUM 8.9 mg/dL (8.8-10.2); MAGNESIUM 2.7 mg/dL (1.5-2.7); POTASSIUM 4.6 mmol/L (3.5-5.1)
--- NOTE | 2016-03-27 08:30 | Diag Imaging Result Document ---
PROCEDURE NAME: CHEST-PORTABLE - 03/27/2016 PORTABLE CHEST: COMPARISON: Compared to 03/26/2016. FINDINGS: There is a moderate sized right-sided pleural effusion which is unchanged. There are sutures in the mid right lung. The heart remains enlarged. There is vascular distention similar to the prior exam. Atelectasis is found in the right lung. The nasogastric tube has been removed since the prior exam. IMPRESSION: No interval improvement.
[2016-03-27] MEDS: SSD CREAM TOP SCH (10:08)
[2016-03-27] MEDS: D5W 1,000 ML IV SCH (10:30)
[2016-03-27] MEDS: LASIX IV SCH ×2 (10:30→23:11)
--- NOTE | 2016-03-27 10:54 | PROGRESS NOTE ---
DATE: 03/27/2016 SUBJECTIVE: The patient is awake, but he does not really follow commands consistently. He does open his eyes. He does track. Occasionally he does squeeze hands, but he appears agitated and overall confused. OBJECTIVE: Vital Signs: Blood pressure 114/74, heart rate of 96, respiratory rate of 22, temperature 96.4 degrees, satting 100% on 2 L. Cardiovascular: Regular rate and rhythm. Pulmonary: Decreased at bases, right more than left. GI: Soft, nontender, nondistended. Bowel sounds are positive. LABS/X-RAYS: BUN and creatinine are 59 and 1.6. Sodium 146, calcium 8.9, hemoglobin and hematocrit 12 and 38, platelets of 165. White count of 4.2. Chest x-ray still shows right lower lobe infiltrate, right lower lobe effusion moderate size. PROBLEM LIST: 1. Acute respiratory failure secondary to cardiac arrest, likely aspiration-type pneumonia. He is still on vancomycin and Zosyn. He has been on about 11 days of Zosyn; the vancomycin has been about the same amount of time. 2. Acute kidney injury. It may be related to heart failure versus other process. There is no obstruction, but his urine output is minimal despite multiple issues. We will check urine here. He is on gentle hydration just because he is not eating, but we are still diuresing because he has volume overload issues. Wean his steroids as well. 3. Encephalopathy. He still has persistent encephalopathy, which overall I still think is related to an anoxic injury, although I do not have gross evidence of that based on his imaging. He does have evidence of mental status improvement, but he is still not able to swallow. At high risk for further decompensation. 4. Hypernatremia. Will switch to D5 and follow closely. DISPOSITION: We will discuss plans of care with family today and decide about other treatment options. At this point, I think hospice may be appropriate because we are looking at a patient who will likely be bed-bound and will need hyperalimentation likely with a feeding tube and we will follow.
[2016-03-27] MEDS: LOVENOX SUBQ SCH (12:42)
[2016-03-27] MEDS: SODIUM CHLORIDE 0.9% INJ SCH (12:42)
[2016-03-27] MEDS: PROTONIX IV SCH (12:42)
[2016-03-27] MEDS ORDERED: LASIX IV ONE ×2 (13:41)
[2016-03-27 14:57] LABS: UR CREAT RANDOM 33.3 mg/dL (14-26); UR PROT RANDOM 92.8 mg/dL
[2016-03-27] MEDS ORDERED: VASELINE TOP PRN (21:25)
--- NOTE | 2016-03-27 22:49 | PROGRESS NOTE ---
DATE: 03/27/2016 SUBJECTIVE: The patient seen and examined. He is on 2 point restraints, agitated, more awake. REVIEW OF SYSTEMS: Constitutional: Positive for confusion. He has some weakness overall. Does not follow commands. Vital Signs: Blood pressure 114/74, heart rate 96, respiratory rate is 22, temperature 96 degrees, oxygen saturation 100% on 2 L. Cardiac: Regular rate and rhythm. General: Patient is agitated, awake, trying to speak. S1-S2 heard. Lungs: Poor inspiratory effort. No wheezing noted. Slightly decreased breath sounds present. Gastrointestinal: Soft. Bowel sounds present. LABS: CBC: Hemoglobin 12.4, WBC count 4.2, hematocrit 38, platelets 165,000. Chemistry: Sodium 146, potassium 4.6, chloride 109, bicarbonate is 19, BUN 59, creatinine 1.6. Microbiology: Klebsiella pneumonia on 03/15/2016. Chest x-ray performed shows a moderate-sized right-sided pleural effusion. Atelectasis in the right lung. ASSESSMENT: 1. Aspiration pneumonia. 2. Hypoxic respiratory failure. 3. Right-sided pleural effusion likely parapneumonic. 4. Acute kidney injury. 5. Coronary artery disease. PLAN: 1. Continue broad-spectrum antibiotics and aspiration precautions. Supplemental oxygen to be continued to keep saturation above 88-90%. 2. I reviewed the x-ray images. Moderate amount of pleural effusion noted. The patient is not a candidate to perform thoracentesis at the bedside due to agitation. We will discuss this plan with Primary Care team to see if we can send him down to Radiology for thoracentesis. 3. halfway prognosis: Extremely poor. Family is considering hospice.
[2016-03-28] MEDS: SOLU-MEDROL IV SCH ×3 (01:10→20:16)
[2016-03-28] MEDS: D5W 1,000 ML IV SCH ×2 (01:49→20:19)
[2016-03-28] MEDS: DUONEB (A & A) INH SCH ×6 (03:38→22:35)
[2016-03-28] MEDS: ZOSYN 3.375 GM/NS 50 ML IV SCH ×4 (05:12→23:50)
[2016-03-28 05:13] LABS: HEMATOCRIT 34.3 % (42.0-52.0); HEMOGLOBIN 11.1 g/dL (14.0-18.0); MCH 28.2 PG (27-31); MCHC 32.4 g/dL (33-37); MCV 87.3 FL (81-99); MPV 12.8 FL (7.4-10.4); RBC 3.93 XMIL (4.7-6.1)
[2016-03-28 05:32] LABS: CALCIUM 8.9 mg/dL (8.8-10.2); POTASSIUM 4.4 mmol/L (3.5-5.1)
[2016-03-28] MEDS: SSD CREAM TOP SCH (08:28)
[2016-03-28] MEDS ORDERED: ATIVAN IV ONE (10:17)
[2016-03-28] MEDS: ALBUMIN 25% IV SCH ×2 (10:52→23:19)
--- NOTE | 2016-03-28 11:07 | PROGRESS NOTE ---
DATE: 03/28/2016 This is an advance care planning note on Atul Montes De Oca. I discussed with 2 sons and his about his poor neurological functioning. We discussed issues concerning poor neurological recovery, likely that he would need PEG tube, possibility he may need dialysis if his kidney function continues to deteriorate, and the fact that he has been here about 2 weeks and has not improved significantly. The family is understanding overall of poor prognosis neurologically. However, they feel that at this point they want to stay the course and not change code status or pursue any other means. Although they feel if he continues to deteriorate, they will consider other treatment options at that time. Additionally they feel like overall if he is unable to eat that he would need a feeding but they would not pursue feeding tube and likely not pursue dialysis if it came down to those issues. Further discussion with family as patient progresses.
--- NOTE | 2016-03-28 11:33 | PROGRESS NOTE ---
DATE: 03/28/2016 SUBJECTIVE: The patient has no focal complaints, but really is very minimally responsive. When I am in there, he is opening his eyes, but he is not tracking, he is not speaking, he is just moaning. I think his mental status is worse today than it has been previously. OBJECTIVE DATA: Vital signs: Blood pressure 134/67, heart rate of 104, respiratory rate 19, temperature 96.1 degrees, 98% on 2 L. General: A well-developed male. Cardiovascular: Regular rate and rhythm. Pulmonary: Bilateral breath sounds. Clear to auscultation. GI: Soft, nontender, nondistended. Extremities: He has 2+ pitting edema pretty much everywhere; upper extremities, lower extremities, sacral area. LABORATORY DATA: Shows BUN and creatinine of 65 and 1.9 which is increased from yesterday. PROBLEM LIST: 1. Acute respiratory failure secondary to cardiac arrest. Saturations are stable currently. Chest x-ray showed significant worsening. Right lower lobe infiltrate secondary to volume overload and possible pneumonia, clinically stabilizing from that standpoint. 2. Congestive heart failure exacerbation. We will initiate Lasix drip, add albumin and follow. 3. Aspiration pneumonia. He is currently on vancomycin and Zosyn. We will continue to monitor. 4. Encephalopathy, presumed anoxic. He still very confused from my standpoint. With the family, we had a prolonged discussion at this point. They do not want to change care because he has woken up a little bit in the past, although they are realistic that he has an overall poor prognosis and I do not think they would want to put him through a feeding tube or dialysis if it came down to that. 5. Acute kidney injury. We will have to continue to monitor, but his urine output is still fairly abysmal. We will initiate Lasix drip and see if he can clinically improve. Urine output had been about 1960 yesterday. DISPOSITION: Pending prognosis. We will continue to discuss this with the family. I had a prolonged discussion with the family yesterday concerning this issue.
[2016-03-28] MEDS: LASIX 100 MG in NS 90 ML IV SCH (12:30)
[2016-03-28] MEDS: LOVENOX SUBQ SCH (13:49)
[2016-03-28] MEDS: PROTONIX IV SCH (13:49)
--- NOTE | 2016-03-28 15:56 | Diag Imaging Result Document ---
PROCEDURE NAME: MRI BRAIN W/O CONTRAST - 03/28/2016 MRI OF THE BRAIN WITHOUT CONTRAST: No contrast was administered per request of the referring provider. COMPARISON: No comparison exam. FINDINGS: There are some generalized atrophic changes. There are mild chronic microvascular ischemic changes in the periventricular white matter, including a chronic small lacunar infarct near the lateral margin of the left lateral ventricle. The diffusion weighted images show no areas of restricted diffusion (no evidence of acute infarct). There is no evidence of hemorrhage, mass effect, or midline shift. There is sphenoid sinusitis noted. IMPRESSION: 1. Some generalized atrophic changes. Mild chronic microvascular ischemic changes. 2. No visible acute intracranial process. No evidence of acute infarct. 3. There is sphenoid sinusitis noted. [facility]
[2016-03-28] MEDS ORDERED: LASIX IV ONE (17:36)
[2016-03-29] MEDS: DUONEB (A & A) INH SCH ×6 (02:50→22:57)
[2016-03-29] MEDS: ZOSYN 3.375 GM/NS 50 ML IV SCH (04:21)
[2016-03-29 06:51] LABS: CALCIUM 8.8 mg/dL (8.8-10.2); POTASSIUM 4.7 mmol/L (3.5-5.1)
[2016-03-29 06:52] LABS: HEMATOCRIT 34.5 % (42.0-52.0); HEMOGLOBIN 11.2 g/dL (14.0-18.0); MCH 28.3 PG (27-31); MCHC 32.5 g/dL (33-37); MCV 87.1 FL (81-99); PLT 157 X1000 (130-400); RBC 3.96 XMIL (4.7-6.1)
--- NOTE | 2016-03-29 08:34 | Diag Imaging Result Document ---
PROCEDURE NAME: CHEST-PORTABLE - 03/29/2016 CHEST SINGLE VIEW: INDICATION: Dyspnea. COMPARISON: 03/27/2016. FINDINGS: There is cardiomegaly. Large right pleural effusion that is not significantly changed. Vascular congestion may be slightly improved, left lung. There are surgical clips, right lung. IMPRESSION: 1. Stable cardiomegaly and moderate right pleural effusion. 2. Probable decrease in overall vascular congestion.
[2016-03-29] MEDS: SOLU-MEDROL IV SCH (08:41)
[2016-03-29] MEDS: D5W 1,000 ML IV SCH (08:41)
[2016-03-29] MEDS: CLINIMIX E 4.25%-5% SOLUTION 1,000 ML IV SCH (10:31)
[2016-03-29] MEDS: LASIX 100 MG in NS 90 ML IV SCH (10:32)
[2016-03-29] MEDS: ZOSYN 2.25 GM/NS 50 ML IV SCH ×3 (10:32→23:00)
--- NOTE | 2016-03-29 10:53 | PROGRESS NOTE ---
DATE: 03/29/2016 SUBJECTIVE: The patient has no focal complaints. He is much more altered today from my standpoint, minimally responsive. He is awake, but he is not very responsive. OBJECTIVE: Vital signs: Blood pressure 128/73, heart rate of 82, respiratory rate of 30, temp 96.5, 93% on 2 L. Cardiovascular: Regular rate and rhythm. Pulmonary: Bilateral breath sounds, diminished at the bases with rales. GI: Soft, nontender, nondistended. Bowel sounds were positive. LABORATORY DATA: Hemoglobin and hematocrit 11 and 34, platelets of 157, white count of 4. Chemistries: BUN and creatinine are 74 and 2.3, which is the highest they have been and steadily deteriorating. PROBLEM LIST: 1. Acute kidney injury, likely acute tubular necrosis from sepsis. Levels have been tolerable but a little bit on the high side, but I think this is just clinical deterioration. We will adjust his medications. 2. If we continue in this vein with his minimal urine output, he will likely need dialysis if his family is concerned about multiple issues. However, I really do not think that that will be of much importance in this setting, in the sense that I do not think it will improve his outcomes per se, but if they want to be aggressive, we will have to get a nephrology evaluation at this point. Will continue Lasix at this point. I think he has gotten a couple of doses of albumin, and despite that, his kidney function really has not improved. 3. Acute respiratory failure secondary to pneumonia, pleural effusion. If we want to be aggressive, again, he may end up need thoracentesis. Will continue to follow. 4. Encephalopathy. This may be multifactorial, possibly associated with multiple issues including azotemia, possible anoxia. Head CT and MRI, however, are really unremarkable. No stroke, so this may be an metabolic encephalopathy. However, clinically he just does not appear to be stable. He does not look like he is going to be awake enough to eat. Again, he will likely need hyperalimentation, so we will continue to follow very closely. DISPOSITION: We need to have further discussion with family about goals of care, because at this point we either need to decide about a PEG and possible dialysis versus just hospice, which would be more appropriate. Clinically, he has not improved in the last 2 weeks, so we will discuss with the family about their treatment options.
[2016-03-29] MEDS: PROTONIX IV SCH (13:47)
[2016-03-29] MEDS: LOVENOX SUBQ SCH (13:47)
[2016-03-29] MEDS: SODIUM CHLORIDE 0.9% INJ SCH (13:47)
[2016-03-29] MEDS: LASIX IV SCH ×2 (14:44→23:00)
[2016-03-29 16:34] LABS: BLOOD TYPE ARTERIAL; METHB 0.8 % (0.0-1.5); O2(CT) 16.6 mL/dL (15.0-23.0); PCO2(98.6) 26 mmHg (35-45); PO2(98.6) 177 mmHg (60-100); SAMPLE BLOOD; SAO2 100.5 % (95.0-100.0); THB 11.8 g/dL (11.5-17.4); pH(98.6) 7.46 (7.35-7.45)
[2016-03-29 16:39] LABS: ALLEN TEST YES; DRAW SITE L BRACHIAL; MODALITY VENTIMASK
[2016-03-29] MEDS ORDERED: DOBUTAMINE 250 MG/D5W 250 ML IV SCH (17:15)
[2016-03-29] MEDS: HALDOL IV PRN ×2 (17:27→23:47)
[2016-03-29] MEDS ORDERED: MORPHINE IV PRN (17:47)
[2016-03-29] MEDS ORDERED: ATIVAN IV PRN (17:48)
[2016-03-29] MEDS: SSD CREAM TOP SCH (18:20)
[2016-03-30] MEDS: DUONEB (A & A) INH SCH ×4 (04:01→15:45)
[2016-03-30] MEDS: ZOSYN 2.25 GM/NS 50 ML IV SCH ×2 (05:20→11:00)
[2016-03-30] MEDS: LASIX IV SCH (05:30)
[2016-03-30] MEDS: CLINIMIX E 4.25%-5% SOLUTION 1,000 ML IV SCH (05:31)
[2016-03-30 08:16] LABS: HEMATOCRIT 32.6 % (42.0-52.0); HEMOGLOBIN 10.9 g/dL (14.0-18.0); MCH 28.3 PG (27-31); MCHC 33.4 g/dL (33-37); MCV 84.7 FL (81-99); PLT 146 X1000 (130-400); RBC 3.85 XMIL (4.7-6.1)
[2016-03-30 08:42] LABS: CALCIUM 8.5 mg/dL (8.8-10.2); MAGNESIUM 2.7 mg/dL (1.5-2.7); POTASSIUM 4.7 mmol/L (3.5-5.1)
[2016-03-30] MEDS ORDERED: SOLU-MEDROL IV SCH (09:00)
[2016-03-30] MEDS: SSD CREAM TOP SCH (10:00)
--- NOTE | 2016-03-30 12:37 | PROGRESS NOTE ---
DATE: 03/30/2016 SUBJECTIVE: The patient is not very responsive today. OBJECTIVE: Blood pressure 113/67, heart rate of 100, respiratory rate 14, temperature 96.4 degrees, 100% on 40%.Cardiovascular: Regular rate and rhythm. Pulmonary: Bilateral breath sounds with rhonchi and decreased at the bases. GI: Soft, nontender, nondistended. Bowel sounds are positive. LABORATORY DATA: White count 3.9, hemoglobin and hematocrit 10 and 32, platelets 146,000. Chemistries: BUN and creatinine is 89 and 2.9. In's and out's: Urine output is 320 today, 250 yesterday so consistent with oliguric ATN. PROBLEMS: 1. Acute kidney injury. Oliguric ATN secondary to CHF, hyperperfusion, possible underlying sepsis with pneumonia but has progressed to the point where now he will likely need dialysis if he is going to turn around but family does not want to pursue that in light of his poor neurological function and overall debilitated state. 2. CHF exacerbation. He is on high-dose Lasix and we started dobutamine and has not really clinically improved whatsoever. We had to progress to BiPAP. 3. Aspiration pneumonia. Still on IV Zosyn. 4. Encephalopathy progressive secondary to multiple issues. I do think he has got some underlying anoxia or ischemic issues that have not been appreciated on imaging. 5. Disposition: Family has decided, this is I believe and 2 sons that they would like to pursue hospice at this point. We are working on that at this point. He is a DNR 1.
--- NOTE | 2016-03-30 12:39 | PROGRESS NOTE ---
DATE: 03/30/2016 Advanced care planning. I have discussed with 2 sons, Tavo, a brother, and I believe patient's about his care. They understand poor prognosis. They do not want to put him through feeding tube or dialysis at this point, despite continued renal dysfunction anuria or oliguria. The patient is not improving despite dobutamine and high-dose IV Lasix. I feel that he is continuing to decline in a fashion associated with his systolic heart failure and renal failure and felt that with his poor prognosis hospice would be appropriate. We are pursuing evaluation for inpatient hospice at this time.
[2016-03-30] MEDS: PROTONIX IV SCH (13:35)
[2016-03-30] MEDS: LOVENOX SUBQ SCH (14:13)
[2016-03-30 16:46] VITALS: BP 109/67
--- NOTE | 2016-03-31 21:01 | HISTORY AND PHYSICAL ---
CHIEF COMPLAINT: Syncope. HISTORY OF PRESENT ILLNESS: The patient is an 85-year-old, white male, who presented to [facility] status post full arrest. The history is per EMS as well as the son's report. EMS notes that the son stated Dad had walked into his bedroom. The son heard a crash shortly thereafter and went to check on Dad. Dad was unresponsive. He called EMS. Upon their arrival patient was nonresponsive. Chest compressions were performed. He was intubated and brought to the emergency department. The patient was noted to have a pulse prior to leaving the scene. ALLERGIES: No known drug allergies. MEDICATIONS: Aspirin 325, metoprolol 100/25, Prilosec. And terazosin 2 mg once a day. REVIEW OF SYSTEMS: As noted above. The son notes that Dad has been going to a Wound Clinic for several months secondary to a wound on his right lower extremity. States that it is barely healing. Otherwise, he denies any knowledge of recent fevers, chills, GI or issues. Denies any knowledge of recent chest pain or shortness of breath worse than his normal dyspnea on exertion. PAST MEDICAL HISTORY: Hypertension, hyperlipidemia, known coronary artery disease, reflux, history of CABG in the past. Has an extensive nonhealing wound on his right lower extremity. SOCIAL HISTORY: Patient lives at home. He no longer smokes. Does not drink. Is cared for by his son. OBJECTIVE: Vital Signs: Reviewed. The patient currently is intubated. Pulse 120, respiratory rate 15, blood pressure 122/84. General: Patient is an elderly male who is in moderate to severe respiratory distress, currently on the ventilator. He is nonresponsive. He is not currently sedated. HEENT: Normocephalic, no appreciable trauma noted. Neck: Supple. No JVD. No bruits. CARDIOVASCULAR: Tachycardia. Chest: Decreased breath sounds, but equal bilaterally. No obvious wheezing or crackles. Abdomen: Soft. Positive bowel sounds. Extremities: The patient currently does not respond to commands. Neurologic: Unable to assess. LABORATORY DATA: Hemoglobin and hematocrit 12 and 37. WBC 6, pH 7.2, lactate 6.3. Sodium 137, potassium 4.1, creatinine 1.2. Bilirubin 1.9. First set of cardiac enzymes noted with a troponin at 0.022. INR 1.78. EKG abnormal. IMAGING: Chest x-ray with a right pleural effusion. Bilateral upper lobe infiltrates. ASSESSMENT: 1. Cardiopulmonary arrest. 2. Sepsis. 3. Bilateral pneumonia. 4. Known coronary artery disease. 5. History of cerebrovascular accident. PLAN: We will admit patient to the hospital. Intensive care unit. He is currently intubated. We will start him on triple antibiotic therapy and continue to monitor for the need for pressors. Currently there is no family around. Patient is in very poor health. He is a chronically appearing male which would add to his poor prognosis. We will continue to follow. Should he survive, will get wound therapy involved regarding his right lower extremity. We will attempt to discuss with his son the poor prognosis and discuss Do Not Resuscitate.
--- NOTE | 2016-05-06 00:52 | DISCHARGE SUMMARY ---
ADMISSION DATE: 03/15/2016 DISCHARGE DATE: 03/30/2016 DISCHARGE DIAGNOSES: 1. Acute kidney injury secondary acute tubular necrosis. 2. Congestive heart failure exacerbation. 3. Aspirational anemia. 4. Encephalopathy. ADMISSION DIAGNOSES: 1. Cardiopulmonary arrest. 2. Sepsis. 3. Bilateral pneumonia. CONSULTATIONS: 1. Pulmonary Dr. Ordoñez. 2. Cardiology [facility]. 3. Taras Tyson. HOSPITAL COURSE: Briefly this is a 85-year-old male admitted on the with status post cardiac arrest in the ER at [place]. He underwent treatment, intubation. He started improving with neurological status and not really significantly improved. Dr. Mckeon broadened coverage, weaned pressors. Had workup, he had significant right lower extremity lesion consistent with probable source of infection. He very slowly clinically improved. He was initially taken off his pressors. He had difficulty getting a [place] so Dr. Tyson was consulted. The patient did not improve after extubation. He was placed on Zosyn for aspiration pneumonia. Prognosis is very poor because patient was not very awake and alert. He had very significant agitation as of . By the he actually had deteriorated, he was on a dopamine, dobutamine infusion not had improved so we decided to pursue hospice care and he was transitioned to hospice care on the converted on the and then on the but he had been converted to hospice prior to that.
== END 2016-03-30 17:49 | disposition hospice, inpatient (51) | DRG 870 ==
LOC: EDUNIT# → P.ED 15:08 → P.ICU 16:41 → P.MEDSURG 03-30 17:47
PROVIDERS: ATTEND Internal Medicine
PROC: 5A1955Z Respiratory Ventilation, Greater than 96 Consecutive Hours (ICD-10-PCS; principal; 2016-03-15)
DX: A41.9 Sepsis, unspecified organism (principal); J69.0 Pneumonitis due to inhalation of food and vomit; N17.0 Acute kidney failure with tubular necrosis; J96.21 Acute and chronic respiratory failure with hypoxia; I46.2 Cardiac arrest due to underlying cardiac condition; J90 Pleural effusion, not elsewhere classified; G93.1 Anoxic brain damage, not elsewhere classified; I50.23 Acute on chronic systolic (congestive) heart failure; J96.22 Acute and chronic respiratory failure with hypercapnia; E87.0 Hyperosmolality and hypernatremia; I42.0 Dilated cardiomyopathy; I11.0 Hypertensive heart disease with heart failure; D69.6 Thrombocytopenia, unspecified; I48.91 Unspecified atrial fibrillation; S81.801A Unspecified open wound, right lower leg, initial encounter; I35.0 Nonrheumatic aortic (valve) stenosis; D64.9 Anemia, unspecified; I73.9 Peripheral vascular disease, unspecified; Z95.1 Presence of aortocoronary bypass graft; I25.10 Atherosclerotic heart disease of native coronary artery without angina pectoris; I49.3 Ventricular premature depolarization; E78.5 Hyperlipidemia, unspecified; N40.1 Benign prostatic hyperplasia with lower urinary tract symptoms; R33.8 Other retention of urine; K21.9 Gastro-esophageal reflux disease without esophagitis; Z66 Do not resuscitate; Z79.899 Other long term (current) drug therapy; Z79.82 Long term (current) use of aspirin; Z86.73 Personal history of transient ischemic attack (TIA), and cerebral infarction without residual deficits; Z87.891 Personal history of nicotine dependence
CPT/HCPCS: 36415; 70450; 70551; 71010; 75635; 76700; 80048; 80053; 80074; 80076; 80202; 81001; 82550; 82553; 82570; 82805; 83605; 83735; 83880; 84100; 84156; 84300; 84484; 84540; 85025; 85027; 85379; 85610; 85730; 87070; 87077; 87088; 87186; 87205; 92950; 93005; 93010; 93306; 94003; 94150; 94640; 94660; 94761; 95813; C9113; J0171; J0456; J0696; J1250; J1630; J1650; J1940; J2060; J2250; J2270; J2370; J2543; J2920; J2930; J3370; J7030; J7050; J7070; Q9967; 92610-GN; 99285-25; P9047; S0164